=== PATIENT | male | born 1965 | race Caucasian/White ===

== ENCOUNTER 2016-10-23 16:37 | Emergency (ER) | payer MEDICAID, OTHER ==
[~2016-10-23] VITALS: Ht 177.8 cm; Wt 74.8 kg
[2016-10-23 16:37] VITALS: BP 169/96
[~2016-10-23 16:37] MED LIST: AMBI10TA PO; CLON0.2T PO; LISI-538 PO; NORCOTAB PO; ZANA4TAB PO; ZOFR20TA PO; ZOLO50TA PO
[2016-10-23] MEDS ORDERED: GABA-283 PO (16:49)
[2016-10-23] MEDS ORDERED: AMOX500C PO (17:30)
== END 2016-10-23 17:51 | disposition home or self-care (01) ==
LOC: M ED 17:24
DX: S01.501A Unspecified open wound of lip, initial encounter (principal); K02.9 Dental caries, unspecified; Y04.0XXA Assault by unarmed brawl or fight, initial encounter; Y92.89 Other specified places as the place of occurrence of the external cause; Y93.89 Activity, other specified; Y99.9 Unspecified external cause status

== ENCOUNTER 2017-01-26 13:13 | Emergency (ER) | payer MEDICAID, OTHER, SELFPAY ==
[~2017-01-26] VITALS: Ht 177.8 cm; Wt 75.0 kg
[~2017-01-26 13:13] MED LIST changes: +AMOX500C PO; +GABA-283 PO
[2017-01-26] MEDS ORDERED: NORCO, ANEXSIA 5/325MG TABLET (HYDROcodone/ACETAMINOPHEN) PO ONE (13:45)
--- NOTE | 2017-01-26 14:48 | REP ---
LEFT WRIST SERIES: FOUR VIEWS. HISTORY: Trauma. FINDINGS: Four views of the left wrist demonstrate overall normal mineralization. No fracture or subluxation is evident. There is some dorsal soft tissue swelling. IMPRESSION: Soft tissue swelling. No fracture seen. No significant change from the 04/19/2014 prior radiograph. Signed by Larry Herrera MD 01/26/2017 05:05 P
--- NOTE | 2017-01-26 14:48 | REP ---
RIGHT ELBOW SERIES: FOUR VIEWS. HISTORY: Trauma. FINDINGS: Four views of the right elbow demonstrate osteoarthritic spurring. No fracture, subluxation, or joint effusion is seen. IMPRESSION: Right elbow osteoarthritis. No fracture seen. Signed by Larry Herrera MD 01/26/2017 05:04 P
--- NOTE | 2017-01-26 14:49 | REP ---
PELVIS, RIGHT HIP: THREE VIEWS. HISTORY: Trauma. FINDINGS: AP view of the pelvis shows an intact bony pelvic ring. No pelvic or sacral fracture is seen. No hip fracture is noted on either side. IMPRESSION: No fracture noted. Signed by Larry Herrera MD 01/26/2017 05:05 P
[2017-01-26 14:50] VITALS: BP 170/92
[2017-01-26] MEDS ORDERED: IBUP-1022 PO (15:05)
== END 2017-01-26 16:03 | disposition home or self-care (01) ==
LOC: M ED 13:13
DX: S69.92XA Unspecified injury of left wrist, hand and finger(s), initial encounter (principal); Z72.0 Tobacco use; V18.4XXA Pedal cycle driver injured in noncollision transport accident in traffic accident, initial encounter; Y92.410 Unspecified street and highway as the place of occurrence of the external cause; Y93.55 Activity, bike riding; Y99.9 Unspecified external cause status

== ENCOUNTER → 2017-02-09 | Outpatient (CLI) | payer MEDICAID ==
[~2017-02-09] MED LIST changes: +CLON0.2T; +IBUP-1022 PO; +LISI40TAB PO
== END ==
LOC: M OUTALCOH 12:49
PROVIDERS: ATTEND Psychiatry & Neurology Psychiatry
DX: F15.20 Other stimulant dependence, uncomplicated (principal)

== ENCOUNTER 2017-03-16 14:42 | Emergency (ER) | payer MEDICAID, OTHER ==
[~2017-03-16] VITALS: Ht 177.8 cm; Wt 77.6 kg
[~2017-03-16 14:42] MED LIST changes: -CLON0.2T; -LISI40TAB PO
[2017-03-16] MEDS ORDERED: CLON0.2T (14:58)
[2017-03-16] MEDS ORDERED: LISI40TAB PO (14:58)
[2017-03-16 16:05] VITALS: BP 178/88
[2017-03-16] MEDS ORDERED: CLON0.2T PO (16:18)
[2017-03-16] MEDS ORDERED: LISI-538 PO (16:18)
== END 2017-03-16 16:53 | disposition home or self-care (01) ==
LOC: M ED 14:42
DX: I10 Essential (primary) hypertension (principal); Z72.0 Tobacco use

== ENCOUNTER → 2017-03-16 | Outpatient (CLI) | payer MEDICAID | LOC: M OUTALCOH 13:00 | PROVIDERS: ATTEND Psychiatry & Neurology Psychiatry | DX: F14.20 Cocaine dependence, uncomplicated (principal); F15.20 Other stimulant dependence, uncomplicated ==

== ENCOUNTER 2017-03-30 14:54 | Outpatient (RCR) | payer OTHER ==
[~2017-03-30 14:54] MED LIST changes: +CLON0.2T; +LISI40TAB PO
== END 2017-04-28 ==
LOC: M OUTALCOH 14:54
PROVIDERS: ATTEND Psychiatry & Neurology Psychiatry
DX: F14.20 Cocaine dependence, uncomplicated (principal); F11.20 Opioid dependence, uncomplicated; F17.200 Nicotine dependence, unspecified, uncomplicated; F15.20 Other stimulant dependence, uncomplicated

== ENCOUNTER 2017-05-21 08:07 | Emergency (ER) | payer OTHER ==
[~2017-05-21] VITALS: Ht 177.8 cm; Wt 75.0 kg
[2017-05-21] MEDS ORDERED: NS 1,000 ML IV SCH (09:04)
[2017-05-21] MEDS: MORPHINE 4 MG/ML 1ML SYRINGE IV PRN ×2 (09:19→11:32)
[2017-05-21 09:25] LABS: BASO % 0.2 % (0.0-1.0); EOS # 0.1 10^3/uL (0.0-0.50); EOS % 0.7 % (0.0-3.0); IMMATURE GRANULOCYTE % 0.4 % (0-0); LYMPH # 1.9 10^3/uL (1.5-4.5); MEAN CORPUSCULAR HEMOGLOBIN 31.8 pg (27.0-33.0); MEAN CORPUSCULAR HGB CONC 34.3 g/dl (32.0-36.5); MEAN CORPUSCULAR VOLUME 92.7 fl (80.0-96.0); MONO # 1.2 10^3/uL (0.0-0.8); MONO % 10.9 % (0.0-5.0); NEUTROPHILS # 7.8 10^3/uL (1.8-7.7); NEUTROPHILS % 70.8 % (36.0-66.0); PLATELET COUNT, AUTOMATED 206 10^3/uL (150-450); RED CELL DISTRIBUTION WIDTH 13.4 % (11.5-14.5)
[2017-05-21] MEDS ORDERED: GASTROGRAFIN SOLUTION 30ML (Q9963) PO ONE (09:30)
[2017-05-21 09:45] LABS: ALBUMIN 3.8 GM/DL (3.2-5.2); ALBUMIN/GLOBULIN RATIO 0.84 (1.00-1.93); ALKALINE PHOSPHATASE 119 U/L (45-117); ALT/SGPT 185 U/L (12-78); ANION GAP 11 MEQ/L (8-16); AST/SGOT 114 U/L (7-37); BILIRUBIN,DIRECT 0.6 MG/DL (0.0-0.2); BILIRUBIN,TOTAL 1.5 MG/DL (0.2-1.0); BLOOD UREA NITROGEN 17 MG/DL (7-18); CALCIUM LEVEL 8.7 MG/DL (8.5-10.1); CARBON DIOXIDE LEVEL 22 MEQ/L (21-32); CHLORIDE LEVEL 105 MEQ/L (98-107); CREATININE FOR GFR 0.98 MG/DL (0.70-1.30); GLOMERULAR FILTRATION RATE > 60.0 (>56); GLUCOSE, FASTING 82 MG/DL (70-105); POTASSIUM SERUM 3.7 MEQ/L (3.5-5.1); SODIUM LEVEL 138 MEQ/L (136-145); TOTAL PROTEIN 8.3 GM/DL (6.4-8.2)
[2017-05-21] MEDS ORDERED: ISOVUE-370 76% 100ML VIAL (Q9967) As Ordered ONE (09:54)
[2017-05-21] MEDS ORDERED: GASTROGRAFIN SOLUTION 30ML PO ONE (10:00)
--- NOTE | 2017-05-21 10:12 | REP ---
Clinical: Trauma. Technique: AP pelvis with neutral and frog lateral views of the left hip. Comparison: 01/26/2017 Findings: Subtle chronic deformity to the bilateral hips remains stable. No acute fracture dislocation. Impression: No acute fracture dislocation to the left hip. Signed by Asaf Phillips MD 05/21/2017 10:04 A
--- NOTE | 2017-05-21 11:28 | REP ---
Clinical: Left lower quadrant pain. Technique: Axial contrast enhanced images from the lung bases to the pubic symphysis using oral (per protocol) and 100 ml Isovue 370 intravenous contrast material with coronal and sagittal re-formations. Comparison: 01/28/2015. Findings: Lung bases are clear. Visualized heart and pericardium normal. Diffuse fatty infiltration to the liver noted without focal hepatic lesion. Spleen, pancreas, gallbladder, bilateral adrenal glands and kidneys are essentially normal/stable. A simple 5.2 cm left renal cyst remains unchanged. The enteric system is without obstruction or acute inflammatory process. Scattered diverticula noted without acute diverticulitis. Pelvis demonstrates partially collapsed normal bladder and age appropriate prostate/seminal vesicles. No ascites. No free air. No adenopathy. Abdominal aorta without aneurysm or dissection. Musculoskeletal structures demonstrate age-related degenerative changes and old compression fracture at L2 without acute focal osseous abnormality. Impression: 1. Hepatic steatosis without focal hepatic lesion. 2. Stable 5.2 cm simple left renal cyst. 3. Colonic diverticula without acute diverticulitis. 4. Chronic stable changes without further acute abdominopelvic pathology appreciated. Signed by Asaf Phillips MD 05/21/2017 11:19 A
[2017-05-21 12:37] VITALS: BP 170/100
[2017-05-21] MEDS ORDERED: LISINOPRIL 20 MG TAB PO ONE (12:45)
[2017-05-21] MEDS ORDERED: cloNIDine 0.2 MG TAB PO ONE (12:45)
[2017-05-21 13:17] LABS: MUCUS, URINE RFX SMALL (NEGATIVE); SQUAM EPITHELIAL CELL UR AURFX 0 /HPF (0-6)
[2017-05-21 13:21] LABS: SPECIFIC GRAVITY UR AUTO RFX >1.060 (1.002-1.035)
[2017-05-21] MEDS ORDERED: PERC5TAB12 PO (13:29)
[2017-05-21 13:36] VITALS: BP 152/88
== END 2017-05-21 13:38 | disposition home or self-care (01) ==
LOC: M ED 08:07
DX: R10.30 Lower abdominal pain, unspecified (principal); S70.02XA Contusion of left hip, initial encounter; I10 Essential (primary) hypertension; E03.9 Hypothyroidism, unspecified; Z72.0 Tobacco use; W19.XXXA Unspecified fall, initial encounter; Y92.89 Other specified places as the place of occurrence of the external cause; Y93.89 Activity, other specified; Y99.9 Unspecified external cause status
CPT/HCPCS: 51701; 73502; 74177; 80048; 80076; 81001; 83690; 85025; 93041; 94760; 96374; 96376; 99285; Q9963

== ENCOUNTER 2017-07-05 08:39 | Emergency (ER) | payer OTHER ==
[2017-07-05] MEDS: ONDANSETRON 4MG/2ML VIAL (J2405) IV (08:55)
[2017-07-05] MEDS: MORPHINE 4 MG/ML 1ML VIAL IV ×2 (08:55→09:29)
[2017-07-05] MEDS: ADACEL/BOOSTRIX VACCINE (DIPHTH/PERTUSS/ACELL/TETANUS)0.5ML SYR (90715) IM (09:00)
[2017-07-05] MEDS: LR 1,000 ML IV (09:00)
[2017-07-05] MEDS: CEFAZOLIN SOD 1 GM in APPROPRIATE DILUENT 1 EA IV (09:15)
[2017-07-05 09:46] LABS: HEMOGLOBIN 15.5 g/dl (14.0-18.0); MEAN CORPUSCULAR HEMOGLOBIN 31.8 pg (27.0-33.0); MEAN CORPUSCULAR HGB CONC 34.4 g/dl (32.0-36.5); MEAN CORPUSCULAR VOLUME 92.4 fl (80.0-96.0); PLATELET COUNT, AUTOMATED 261 10^3/uL (150-450); RED BLOOD COUNT 4.87 10^6/uL (4.30-6.10); RED CELL DISTRIBUTION WIDTH 13.3 % (11.5-14.5); WHITE BLOOD COUNT 12.2 10^3/uL (4.0-10.0)
[2017-07-05 09:59] LABS: CARBOXYHEMOGLOBIN 4.2 % (0.0-1.5)
[2017-07-05 09:59] LABS: ALBUMIN 3.6 GM/DL (3.2-5.2); ALBUMIN/GLOBULIN RATIO 0.95 (1.00-1.93); ALKALINE PHOSPHATASE 119 U/L (45-117); ALT/SGPT 178 U/L (12-78); ANION GAP 10 MEQ/L (8-16); AST/SGOT 102 U/L (7-37); BILIRUBIN,DIRECT 0.5 MG/DL (0.0-0.2); BILIRUBIN,TOTAL 1.2 MG/DL (0.2-1.0); BLOOD UREA NITROGEN 15 MG/DL (7-18); CALCIUM LEVEL 8.3 MG/DL (8.5-10.1); CARBON DIOXIDE LEVEL 20 MEQ/L (21-32); CHLORIDE LEVEL 104 MEQ/L (98-107); CREATININE FOR GFR 1.12 MG/DL (0.70-1.30); GLOMERULAR FILTRATION RATE > 60.0 (>56); GLUCOSE, FASTING 192 MG/DL (70-100); POTASSIUM SERUM 3.7 MEQ/L (3.5-5.1); SODIUM LEVEL 134 MEQ/L (136-145); TOTAL PROTEIN 7.4 GM/DL (6.4-8.2)
[2017-07-05 10:45] LABS: INR 1.25; PROTHROMBIN TIME 15.9 SECONDS (12.4-14.5)
== END 2017-07-05 10:20 | disposition short-term general hospital (02) ==
LOC: M ED 08:39
DX: T22.6 Corrosion of second degree of shoulder and upper limb, except wrist and hand (principal); T21.6 Corrosion of second degree of trunk; T24.602A Corrosion of second degree of unspecified site of left lower limb, except ankle and foot, initial encounter; T24.601A Corrosion of second degree of unspecified site of right lower limb, except ankle and foot, initial encounter; W40.9XXA Explosion of unspecified explosive materials, initial encounter; X04.XXXA Exposure to ignition of highly flammable material, initial encounter; Y92.009 Unspecified place in unspecified non-institutional (private) residence as the place of occurrence of the external cause; I10 Essential (primary) hypertension; F33.9 Major depressive disorder, recurrent, unspecified; F17.210 Nicotine dependence, cigarettes, uncomplicated; F14.90 Cocaine use, unspecified, uncomplicated; F15.90 Other stimulant use, unspecified, uncomplicated
CPT/HCPCS: 90715

== ENCOUNTER 2017-08-04 04:53 | Emergency (ER) | payer OTHER ==
[2017-08-04] MEDS: ACETAMINOPHEN TAB 650MG DOSE (2X325MG) PO (06:42)
[2017-08-04] MEDS: LISINOPRIL 20 MG TAB PO (06:42)
[2017-08-04] MEDS: GABAPENTIN 300 MG CAP PO (06:42)
== END 2017-08-04 09:10 | disposition home or self-care (01) ==
LOC: M ED 04:53
DX: Z59.0 Homelessness (principal); F15.10 Other stimulant abuse, uncomplicated; F17.210 Nicotine dependence, cigarettes, uncomplicated; Z79.899 Other long term (current) drug therapy
CPT/HCPCS: 99284

== ENCOUNTER → 2017-08-15 | Outpatient (REF) | payer OTHER ==
[2017-08-15 12:20] LABS: HEPATITIS B SURFACE ANTIBODY NEGATIVE (POSITIVE)
[2017-08-15 12:23] LABS: ALBUMIN/GLOBULIN RATIO 0.68 (1.00-1.93); ALKALINE PHOSPHATASE 189 U/L (45-117); ALT/SGPT 54 U/L (12-78); ANION GAP 8 MEQ/L (8-16); AST/SGOT 39 U/L (7-37); BILIRUBIN,TOTAL 0.2 MG/DL (0.2-1.0); BLOOD UREA NITROGEN 17 MG/DL (7-18); CALCIUM LEVEL 8.3 MG/DL (8.5-10.1); CARBON DIOXIDE LEVEL 27 MEQ/L (21-32); CHLORIDE LEVEL 113 MEQ/L (98-107); CREATININE FOR GFR 0.75 MG/DL (0.70-1.30); GLOMERULAR FILTRATION RATE > 60.0 (>56); GLUCOSE, FASTING 85 MG/DL (70-100); POTASSIUM SERUM 4.7 MEQ/L (3.5-5.1); SODIUM LEVEL 148 MEQ/L (136-145); TOTAL PROTEIN 7.4 GM/DL (6.4-8.2)
[2017-08-15 12:26] LABS: BASO % 0.4 % (0.0-1.0); EOS # 0.3 10^3/uL (0.0-0.50); EOS % 6.5 % (0.0-3.0); HEMATOCRIT 38.8 % (42.0-52.0); HEMOGLOBIN 11.9 g/dl (14.0-18.0); IMMATURE GRANULOCYTE % 0.2 % (0-3.0); LYMPH # 1.2 10^3/uL (1.5-4.5); LYMPH % 23.3 % (24.0-44.0); MEAN CORPUSCULAR HEMOGLOBIN 31.5 pg (27.0-33.0); MEAN CORPUSCULAR HGB CONC 30.7 g/dl (32.0-36.5); MEAN CORPUSCULAR VOLUME 102.6 fl (80.0-96.0); MONO # 0.7 10^3/uL (0.0-0.8); MONO % 12.7 % (0.0-5.0); NEUTROPHILS % 56.9 % (36.0-66.0); PLATELET COUNT, AUTOMATED 200 10^3/uL (150-450); RED BLOOD COUNT 3.78 10^6/uL (4.30-6.10); RED CELL DISTRIBUTION WIDTH 14.4 % (11.5-14.5); WHITE BLOOD COUNT 5.2 10^3/uL (4.0-10.0)
[2017-08-15 12:30] LABS: HEPATITIS B SURFACE ANTIGEN NEGATIVE (NEGATIVE)
== END ==
LOC: M SFHCPLAZ 08:41
DX: B19.20 Unspecified viral hepatitis C without hepatic coma (principal)

== ENCOUNTER 2017-09-09 13:23 | Outpatient (RCR) | payer OTHER | END 2017-09-26 | LOC: M PT 13:23 | DX: Z51.89 Encounter for other specified aftercare (principal); R53.81 Other malaise | CPT/HCPCS: 97110 ==

== ENCOUNTER → 2017-09-29 | Outpatient (CLI) | payer OTHER | LOC: M OUTALCOH 14:13 | DX: Z13.9 Encounter for screening, unspecified (principal); F15.20 Other stimulant dependence, uncomplicated ==

== ENCOUNTER 2017-10-17 10:27 | Outpatient (RCR) | payer OTHER | END 2017-10-27 | LOC: M OUTALCOH 10-25 16:00 | DX: F15.20 Other stimulant dependence, uncomplicated (principal); F14.20 Cocaine dependence, uncomplicated; F11.20 Opioid dependence, uncomplicated; F17.200 Nicotine dependence, unspecified, uncomplicated ==

== ENCOUNTER 2018-01-17 17:15 | Emergency (ER) | payer OTHER | END 2018-01-17 18:15 | disposition home or self-care (01) | LOC: M ED 17:15 | DX: T24.201A Burn of second degree of unspecified site of right lower limb, except ankle and foot, initial encounter (principal); X01.0XXA Exposure to flames in uncontrolled fire, not in building or structure, initial encounter; Y92.89 Other specified places as the place of occurrence of the external cause; I10 Essential (primary) hypertension; F41.9 Anxiety disorder, unspecified; F32.9 Major depressive disorder, single episode, unspecified; F17.200 Nicotine dependence, unspecified, uncomplicated; Z79.899 Other long term (current) drug therapy | CPT/HCPCS: 99282 ==

== ENCOUNTER → 2020-04-08 | Outpatient (REF) | payer MEDICAID ==
[~2020-04-08] MED LIST changes: +BACI500O8 TOP; +BACT800T5 PO; -GABA-283 PO; +GABA-845 PO; +HYDR-3715 PO; +LISI40TA PO; -LISI40TAB PO; -NORCOTAB PO; +PERC5TAB12 PO; -ZOFR20TA PO; +ZOFR4TAB16 PO
[2020-04-08 16:02] LABS: BASO % 0.4 % (0.0-1.0); EOS # 0.2 10^3/uL (0.0-0.5); EOS % 2.6 % (0.0-3.0); HEMATOCRIT 51.3 % (42.0-52.0); HEMOGLOBIN 16.4 g/dl (13.5-17.5); LYMPH % 37.6 % (24.0-44.0); MONO # 0.9 10^3/uL (0.0-0.8); MONO % 11.4 % (0.0-5.0); NEUTROPHILS # 3.9 10^3/uL (1.5-8.5); NEUTROPHILS % 47.8 % (36.0-66.0); PLATELET COUNT, AUTOMATED 231 10^3/uL (150-450); RED BLOOD COUNT 5.29 10^6/uL (4.30-6.10); WHITE BLOOD COUNT 8.1 10^3/uL (4.0-10.0)
[2020-04-08 16:42] LABS: HEPATITIS B SURFACE ANTIBODY POSITIVE (POSITIVE)
[2020-04-08 17:21] LABS: HIV 1&2 SCREEN CENTAUR NEGATIVE (NEGATIVE)
== END ==
LOC: M SFHCPLAZ 11:55
PROVIDERS: ATTEND Internal Medicine Infectious Disease
DX: B18.2 Chronic viral hepatitis C (principal); R63.5 Abnormal weight gain

== ENCOUNTER 2020-05-27 12:23 | Emergency (ER) | payer MEDICAID ==
[~2020-05-27] VITALS: Ht 175.3 cm; Wt 109.6 kg
[2020-05-27] MEDS ORDERED: HYDR25TAB PO (12:38)
[2020-05-27] MEDS ORDERED: LISI40TA PO (12:38)
[2020-05-27] MEDS ORDERED: METO1TAB33 PO (12:38)
[2020-05-27] MEDS ORDERED: CLON-412 PO (12:38)
--- NOTE | 2020-05-27 13:08 | REP ---
INDICATION: CHEST PAIN COMPARISON: 07/05/2017 TECHNIQUE: Portable AP view of the chest FINDINGS: The mediastinum and cardiac silhouette are stable and within normal limits for portable technique. The lung richardson are clear without acute consolidation, effusion, or pneumothorax. Skeletal structures are intact. IMPRESSION: No acute cardiopulmonary process appreciated. <Electronically signed by Asaf Phillips > 05/27/20 [id number]
--- NOTE | 2020-05-27 13:20 | ECGEPIP ---
[facility] - ED Test Date: 2020-05-27 Pat Name: CHACORTA MOREAU Department: Room: - Gender: Male Health And Wellness Manager: GISSELLE : 1965 Requested By: Alyssia Russo Order Number: [id number] Reading MD: Ricardo Fisher Measurements Intervals [place] Rate: 51 P: 79 NE: 186 QRS: -12 QRSD: 85 T: 32 QT: 455 QTc: 421 Interpretive Statements SINUS BRADYCARDIA Similar to tracing done 05-28-15 Electronically Signed on 05-27-2020 13:19:50 EST by Ricardo Fisher
[2020-05-27] MEDS ORDERED: hydroCHLOROthiazide 25 MG TAB PO STA (13:34)
[2020-05-27 13:40] LABS: BASO % 0.5 % (0.0-1.0); EOS # 0.2 10^3/uL (0.0-0.5); EOS % 3.5 % (0.0-3.0); HEMATOCRIT 43.7 % (42.0-52.0); HEMOGLOBIN 14.1 g/dl (13.5-17.5); LYMPH # 2.3 10^3/uL (1.5-5.0); LYMPH % 34.1 % (24.0-44.0); MEAN CORPUSCULAR HEMOGLOBIN 30.8 pg (27.0-33.0); MEAN CORPUSCULAR HGB CONC 32.3 g/dl (32.0-36.5); MEAN CORPUSCULAR VOLUME 95.4 fl (80.0-96.0); MONO # 0.7 10^3/uL (0.0-0.8); MONO % 9.9 % (0.0-5.0); NEUTROPHILS # 3.4 10^3/uL (1.5-8.5); NEUTROPHILS % 51.7 % (36.0-66.0); PLATELET COUNT, AUTOMATED 166 10^3/uL (150-450); RED BLOOD COUNT 4.58 10^6/uL (4.30-6.10); WHITE BLOOD COUNT 6.6 10^3/uL (4.0-10.0)
[2020-05-27 17:31] VITALS: BP 168/100
--- NOTE | 2020-05-28 07:30 | ECGEPIP ---
[facility] - ED Test Date: 2020-05-27 Pat Name: CHACORTA MOREAU Department: Room: - Gender: Male Manager Of Merchandising: ty : 1965 Requested By: RICARDO VILLATORO Order Number: [id number] Reading MD: Ricardo Fisher Measurements Intervals [place] Rate: 47 P: 44 CT: 191 QRS: -18 QRSD: 91 T: 2 QT: 484 QTc: 432 Interpretive Statements SINUS BRADYCARDIA Nonspecific ST-T wave abnormalities Electronically Signed on 05-28-2020 7:29:57 EST by Ricardo Fisher
== END 2020-05-27 17:46 | disposition home or self-care (01) ==
LOC: M ED 12:23
DX: I10 Essential (primary) hypertension (principal); K21.9 Gastro-esophageal reflux disease without esophagitis; M54.5 Low back pain; Z79.899 Other long term (current) drug therapy; F19.11 Other psychoactive substance abuse, in remission; F17.220 Nicotine dependence, chewing tobacco, uncomplicated

== ENCOUNTER → 2020-10-29 | Outpatient (CLI) | payer OTHER ==
[~2020-10-29] MED LIST changes: +CLON-412 PO; +GABA-283 PO; -GABA-845 PO; +HYDR-3490 PO; -LISI-538 PO; +LISI20TA33 PO; -LISI40TA PO; +LISI40TA4 PO; +METO1TAB33 PO
--- NOTE | 2020-10-29 10:34 | REPVR ---
PROCEDURE INFORMATION: Exam: MR Lumbar Spine Without Contrast Exam date and time: 10/29/2020 8:31 AM Age: 55 years old Clinical indication: Low back pain. TECHNIQUE: Imaging protocol: Multiplanar magnetic resonance images of the lumbar spine without intravenous contrast. COMPARISON: MRI-Spine, L.S. without con 07/17/2015 5:54 PM FINDINGS: Vertebrae: There is a chronic L2 compression fracture. This has been reported previously. Spinal cord: Normal signal. No cord compression. L1-L2: No significant disc disease. No significant spinal canal stenosis. No neural foraminal stenosis. L2-L3: There is disc desiccation. There is a moderate disc bulge with a small superimposed central disc herniation. There is moderate bilateral neural foraminal narrowing. There is facet arthropathy and ligamentum flavum hypertrophy. There is moderate spinal canal stenosis, worse compared to prior study. L3-L4: There is facet arthropathy and ligamentum flavum hypertrophy. There is moderate bilateral neural foraminal narrowing. There is mild/moderate spinal canal stenosis. L4-L5: There is facet arthropathy and ligamentum flavum hypertrophy. There is a superimposed left foraminal disc herniation. There is moderate/severe bilateral neuroforaminal narrowing, left worse than right. There is moderate spinal canal stenosis. L5-S1: There is mild disc bulging. There is a superimposed left foraminal disc herniation. There is moderate left-sided neuroforaminal narrowing. There is facet arthropathy and ligamentum flavum hypertrophy. There is mild spinal canal stenosis. Sacrum/coccyx: There is a transitional lumbosacral segment. There is lumbarization of the S1 vertebra. Correlation with plain films prior to any future lumbar procedure is recommended to confirm accurate numbering of the lumbar spine. Soft tissues: Unremarkable. Kidneys and ureters: There are high signal lesions in the left kidney, possibly cysts, but not fully characterized on this MRI exam. The appearance is similar to prior study. Other findings: There is congenital spinal canal stenosis which is exacerbated by multilevel degenerative changes. IMPRESSION: 1. There is congenital spinal canal stenosis which is exacerbated by multilevel degenerative changes. 2. There is a chronic L2 compression fracture. This has been reported previously. 3. Moderate multilevel degenerative changes causing variable degrees of spinal canal and neuroforaminal narrowing as described above. These findings have progressed since prior study. Please see details above. 4. There is a transitional lumbosacral segment. There is lumbarization of the S1 vertebra. Correlation with plain films prior to any future lumbar procedure is recommended to confirm accurate numbering of the lumbar spine. Electronically signed by: Andre Hercules On 10/29/2020 10:34:49 AM
== END ==
LOC: M PLARAD 07:41
PROVIDERS: ATTEND Physician Assistant
DX: M51.36 Other intervertebral disc degeneration, lumbar region (principal); M48.061 Spinal stenosis, lumbar region without neurogenic claudication

== ENCOUNTER → 2020-10-29 | Outpatient (CLI) | payer OTHER ==
[2020-10-29 11:07] LABS: BASO % 0.4 % (0.0-1.0); EOS # 0.2 10^3/uL (0.0-0.5); EOS % 3.1 % (0.0-3.0); HEMATOCRIT 49.2 % (42.0-52.0); HEMOGLOBIN 16.1 g/dl (13.5-17.5); LYMPH # 2.8 10^3/uL (1.5-5.0); LYMPH % 38.9 % (24.0-44.0); MEAN CORPUSCULAR HEMOGLOBIN 31.8 pg (27.0-33.0); MEAN CORPUSCULAR HGB CONC 32.7 g/dl (32.0-36.5); MEAN CORPUSCULAR VOLUME 97.2 fl (80.0-96.0); MONO # 0.8 10^3/uL (0.0-0.8); MONO % 10.7 % (2.0-8.0); NEUTROPHILS # 3.4 10^3/uL (1.5-8.5); NEUTROPHILS % 46.6 % (36.0-66.0); PLATELET COUNT, AUTOMATED 180 10^3/uL (150-450); RED BLOOD COUNT 5.06 10^6/uL (4.30-6.10); WHITE BLOOD COUNT 7.2 10^3/uL (4.0-10.0)
[2020-10-29 11:28] LABS: ERYTHROCYTE SEDIMENTATION RATE 4 mm/hr (0-20)
[2020-10-29 11:42] LABS: C REACTIVE PROTEIN QUANTITATIV < 0.30 MG/DL (0.00-0.30); RHEUMATOID FACTOR QUANT < 10.0 IU/ML (<15.0)
== END ==
LOC: M PLALAB 08:44
PROVIDERS: ATTEND Physician Assistant
DX: M51.36 Other intervertebral disc degeneration, lumbar region (principal)

== ENCOUNTER → 2020-12-05 | Outpatient (REF) ==
[~2020-12-05] MED LIST changes: +AMLO1TAB25 PO; +CHLO125TA PO; +CORE25TA PO; +GABA-282; +IBUP80TA; +OXYC10TA3; +SPIR-10 PO; +TIZA10TA
== END ==
LOC: M PLAIMG 13:44
PROVIDERS: ATTEND Internal Medicine
DX: M54.2 Cervicalgia (principal); M54.89 Other dorsalgia

== ENCOUNTER → 2020-12-11 | Outpatient (CLI) | payer OTHER, MEDICAID ==
[~2020-12-11] MED LIST changes: -AMLO1TAB25 PO; -CHLO125TA PO; -CORE25TA PO; -GABA-282; -IBUP80TA; -OXYC10TA3; -SPIR-10 PO; -TIZA10TA
[2020-12-11 14:15] LABS: CALCIUM LEVEL 9.2 MG/DL (8.5-10.1); CREATININE FOR GFR 1.47 MG/DL (0.70-1.30); GLOMERULAR FILTRATION RATE 52.6 (>56); POTASSIUM SERUM 4.2 MEQ/L (3.5-5.1)
== END ==
LOC: M PLALAB 09:40
PROVIDERS: ATTEND Student in an Organized Health Care Education/Training Program
DX: M94.0 Chondrocostal junction syndrome [Tietze] (principal)

== ENCOUNTER → 2020-12-11 | Outpatient (REF) | payer OTHER, MEDICAID | LOC: M SFHCPLAZ 09:09 | PROVIDERS: ATTEND Family Medicine | DX: M94.0 Chondrocostal junction syndrome [Tietze] (principal) ==

== ENCOUNTER → 2021-01-05 | Outpatient (CLI) | payer OTHER, MEDICAID ==
[~2021-01-05] MED LIST changes: +AMLO1TAB25 PO; +CHLO125TA PO; +CORE25TA PO; +GABA-282; +IBUP80TA; +OXYC10TA3; +SPIR-10 PO; +TIZA10TA
[2021-01-05 11:45] LABS: BLOOD UREA NITROGEN 25 MG/DL (7-18); CALCIUM LEVEL 9.1 MG/DL (8.5-10.1); CARBON DIOXIDE LEVEL 24 MEQ/L (21-32); CHLORIDE LEVEL 107 MEQ/L (98-107); CREATININE FOR GFR 1.26 MG/DL (0.70-1.30); GLOMERULAR FILTRATION RATE > 60.0 (>56); GLUCOSE, FASTING 102 MG/DL (70-100); POTASSIUM SERUM 4.7 MEQ/L (3.5-5.1); SODIUM LEVEL 139 MEQ/L (136-145)
== END ==
LOC: M PLALAB 08:14
PROVIDERS: ATTEND Student in an Organized Health Care Education/Training Program
DX: N17.9 Acute kidney failure, unspecified (principal)

== ENCOUNTER 2021-05-26 13:39 | Emergency (ER) | payer MEDICAID, OTHER ==
[~2021-05-26] VITALS: Ht 175.3 cm; Wt 88.6 kg
[~2021-05-26 13:39] MED LIST changes: -AMLO1TAB25 PO; -CHLO125TA PO; -CORE25TA PO; -GABA-282; -IBUP80TA; -OXYC10TA3; -SPIR-10 PO; -TIZA10TA
[2021-05-26] MEDS ORDERED: TIZA4TAB4 (13:56)
[2021-05-26] MEDS ORDERED: GABA-282 (13:56)
--- NOTE | 2021-05-26 15:15 | REPVR ---
PROCEDURE INFORMATION: Exam: CT Lumbar Spine Without Contrast Exam date and time: 05/26/2021 2:53 PM Age: 55 years old Clinical indication: Injury or trauma; Blunt trauma (contusions or hematomas) TECHNIQUE: Imaging protocol: Computed tomography images of the lumbar spine without contrast. Radiation optimization: All CT scans at this facility use at least one of these dose optimization techniques: automated exposure control; mA and/or kV adjustment per patient size (includes targeted exams where dose is matched to clinical indication); or iterative reconstruction. COMPARISON: 1. MRI-Spine, L.S. without con 10/29/2020 7:56 AM 2. MRI-Spine, L.S. without con 5:54 PM 07/17/2015 FINDINGS: Vertebrae: There is chronic fusion at L1-L2. There is a chronic appearing cleft of L2 which suggests a remote fracture stable since at least 2015 with minimal loss of stature. There is no evidence of an acute fracture. There are diffuse anterior spinal enthesopathic changes consistent with benign diffuse idiopathic skeletal hyperostosis (DISH). There is fusion of the left facet joints at L3-L4 with mild narrowing of the disc space. There is mild right and moderate left foraminal stenosis. Discs/Spinal canal/Neural foramina: See "Vertebrae" finding. Soft tissues: Unremarkable. IMPRESSION: 1. There is chronic fusion at L1-L2. 2. There is a chronic appearing cleft of L2 which suggests a remote fracture stable since at least 2015 with minimal loss of stature. There is no evidence of an acute fracture. 3. There are diffuse anterior spinal enthesopathic changes consistent with benign diffuse idiopathic skeletal hyperostosis (DISH). 4. There is fusion of the left facet joints at L3-L4 with mild narrowing of the disc space. There is mild right and moderate left foraminal stenosis. Electronically signed by: Mychal Fuentes On 05/26/2021 15:14:21 PM
[2021-05-26 15:24] LABS: BASO % 0.4 % (0.0-1.0); EOS # 0.1 10^3/uL (0.0-0.5); EOS % 1.2 % (0.0-3.0); HEMATOCRIT 45.3 % (42.0-52.0); HEMOGLOBIN 14.9 g/dl (13.5-17.5); LYMPH # 1.6 10^3/uL (1.5-5.0); LYMPH % 14.4 % (24.0-44.0); MEAN CORPUSCULAR HEMOGLOBIN 31.4 pg (27.0-33.0); MEAN CORPUSCULAR HGB CONC 32.9 g/dl (32.0-36.5); MEAN CORPUSCULAR VOLUME 95.4 fl (80.0-96.0); NEUTROPHILS # 8.2 10^3/uL (1.5-8.5); NEUTROPHILS % 74.5 % (36.0-66.0); PLATELET COUNT, AUTOMATED 233 10^3/uL (150-450); RED BLOOD COUNT 4.75 10^6/uL (4.30-6.10)
[2021-05-26 15:47] LABS: ALBUMIN 3.5 GM/DL (3.2-5.2); ALT/SGPT 53 U/L (12-78); BILIRUBIN,TOTAL 1.1 MG/DL (0.2-1.0); BLOOD UREA NITROGEN 15 MG/DL (7-18); CALCIUM LEVEL 9.4 MG/DL (8.5-10.1); CARBON DIOXIDE LEVEL 32 MEQ/L (21-32); CHLORIDE LEVEL 105 MEQ/L (98-107); CREATININE FOR GFR 0.93 MG/DL (0.70-1.30); GLOMERULAR FILTRATION RATE > 60.0 (>56); GLUCOSE, FASTING 117 MG/DL (70-100); POTASSIUM SERUM 3.8 MEQ/L (3.5-5.1); SODIUM LEVEL 143 MEQ/L (136-145); TOTAL PROTEIN 7.6 GM/DL (6.4-8.2)
[2021-05-26] MEDS ORDERED: KETOROLAC 30 MG/ML 1ML VIAL IV ONE (16:00)
--- NOTE | 2021-05-26 16:26 | REP ---
INDICATION: painful cough and left lower rib pain COMPARISON: None TECHNIQUE: Axial noncontrast images from the thoracic inlet to the upper abdomen with coronal and sagittal reformations. This CT examination was performed using the following dose reduction techniques: Automated exposure control, adjustment of mA and/or kv according to the patient's size, and use of iterative reconstruction technique. FINDINGS: Lung richardson demonstrate diffuse subtle bilateral opacities along with mild mediastinal adenopathy. Findings suggest early multifocal pneumonia and or COVID-19 pulmonary disease. No effusion. No pneumothorax. Tracheobronchial tree is patent. Mediastinum demonstrates relatively age-appropriate thoracic aorta, pulmonary vasculature, and heart/pericardium. The skeletal structures demonstrate degenerative changes although there appears to be a possible acute nondisplaced fracture involving the left transverse process at L1 (series 202, image [id number]). IMPRESSION: 1. Moderate subtle bilateral pulmonary opacities concerning for COVID-19 pulmonary disease versus multifocal pneumonia. 2. Possible acute nondisplaced fracture of the left L1 transverse process. <Electronically signed by Asaf Phillips > 05/26/21 [id number]
[2021-05-26 16:40] LABS: APPEARANCE, URINE HAZY (CLEAR); BACTERIA, URINE AUTO NEGATIVE (NEGATIVE); BILIRUBIN, URINE AUTO NEGATIVE (NEGATIVE); BLOOD, URINE BLOOD NEGATIVE (NEGATIVE); COLOR, URINE AMBER (YELLOW); GLUCOSE, URINE (UA) AUTO NEGATIVE (NEGATIVE); KETONE, URINE AUTO TRACE mg/dL (NEGATIVE); LEUKOCYTE ESTERASE, URINE AUTO NEGATIVE (NEGATIVE); MUCUS, URINE LARGE (NEGATIVE); NITRITE, URINE AUTO NEGATIVE (NEGATIVE); PROTEIN, URINE AUTO 1+ mg/dL (NEGATIVE); RBC, URINE AUTO 1 /HPF (0-3); SPECIFIC GRAVITY URINE AUTO 1.025 (1.002-1.035); SQUAMOUS EPITHELIAL CELL UR AU 0 /HPF (0-6); WBC, URINE AUTO 2 /HPF (0-3)
[2021-05-26] MEDS ORDERED: PERCOCET 5MG/325MG TAB PO ONE (18:05)
--- NOTE | 2021-05-26 18:16 | HPE ---
HISTORY AND PHYSICAL DATE OF ADMISSION: 05/26/2021 CHIEF COMPLAINT: Back pain. HISTORY OF PRESENT ILLNESS: I was called by the QMP, Fannie Hurtado, at [facility] today, 05/26/2021, at approximately 4:35 p.m. Per the QMP, patient slipped on a step 2 days ago, landed on her buttocks and her back. Is bruised. Had midline lumbar spine pain, worse with motion. CT scan was performed that shows a left L1 transverse process fracture per the QMP. ASSESSMENT AND PLAN: This is a 55-year-old patient with a spine fracture. I do not have privileges to assess, manage, or treat this problem. The QMP, Fannie Hurtado, understood and had no further questions or concerns.
[2021-05-26 20:40] VITALS: BP 142/85
== END 2021-05-26 20:45 | disposition short-term general hospital (02) ==
LOC: M ED 13:39
DX: S32.008A Other fracture of unspecified lumbar vertebra, initial encounter for closed fracture (principal); W01.198A Fall on same level from slipping, tripping and stumbling with subsequent striking against other object, initial encounter; Y92.89 Other specified places as the place of occurrence of the external cause; I10 Essential (primary) hypertension; G89.29 Other chronic pain; F17.220 Nicotine dependence, chewing tobacco, uncomplicated
CPT/HCPCS: 71250; 72131; 80053; 81001; 85025; 96374; 99284; J1885; U0002

== ENCOUNTER 2021-06-25 07:36 | Emergency (ER) | payer OTHER ==
[~2021-06-25] VITALS: Ht 175.3 cm; Wt 87.9 kg
[~2021-06-25 07:36] MED LIST changes: +GABA-282; +TIZA10TA
[2021-06-25] MEDS ORDERED: IBUP80TA (07:44)
[2021-06-25] MEDS ORDERED: OXYC10TA3 (07:44)
[2021-06-25] MEDS ORDERED: FUROSEMIDE 20MG/2ML VIAL (J1940) IV ONE (12:50)
[2021-06-25 13:00] VITALS: BP 197/95
[2021-06-25] MEDS ORDERED: SPIRONOLACTONE 25 MG TAB PO ONE (15:25)
[2021-06-25] MEDS ORDERED: FUROSEMIDE 40MG/4ML VIAL (J1940) IV ONE (15:25)
[2021-06-25] MEDS ORDERED: CHLO125TA PO (17:51)
[2021-06-25] MEDS ORDERED: CORE25TA PO (17:51)
[2021-06-25] MEDS ORDERED: AMLO1TAB25 PO (17:51)
[2021-06-25] MEDS ORDERED: SPIR-10 PO (17:51)
[2021-06-25 18:27] VITALS: BP 176/94
== END 2021-06-25 18:38 | disposition home or self-care (01) ==
LOC: M ED 07:36
DX: I16.0 Hypertensive urgency (principal); I10 Essential (primary) hypertension; R21 Rash and other nonspecific skin eruption; B18.2 Chronic viral hepatitis C; E03.9 Hypothyroidism, unspecified; F33.9 Major depressive disorder, recurrent, unspecified; F41.9 Anxiety disorder, unspecified; M51.9 Unspecified thoracic, thoracolumbar and lumbosacral intervertebral disc disorder; Z79.899 Other long term (current) drug therapy; F17.210 Nicotine dependence, cigarettes, uncomplicated
CPT/HCPCS: 80047; 96374; 96375; 99285; J1940

== ENCOUNTER 2022-05-31 05:02 | Inpatient (IN) | payer OTHER ==
[~2022-05-31] VITALS: Ht 175.3 cm; Wt 70.6 kg
[2022-05-31] VITALS (7 sets, daily range): BP systolic 135–166; BP diastolic 88–112
[~2022-05-31 05:02] MED LIST changes: +AMLO1TAB25 PO; +CHLO125TA PO; +CORE25TA PO; +IBUP80TA PO; +OXYC10TA3; +SPIR-10 PO
[2022-05-31] MEDS ORDERED: MORPHINE 10 MG/ML 1ML VIAL IM ONE (05:40)
[2022-05-31] MEDS ORDERED: MORPHINE 4 MG/ML 1ML VIAL IV ONE (06:45)
[2022-05-31] MEDS ORDERED: CHLORTHALIDONE 12.5MG PER 1/2 TABLET PO ONE (06:50)
[2022-05-31] MEDS ORDERED: CARVedilol 12.5 MG TAB PO ONE (06:50)
[2022-05-31] MEDS ORDERED: KETOROLAC 30 MG/ML 1ML VIAL IV ONE (07:00)
[2022-05-31 07:23] LABS: BASO % 0.3 % (0.0-1.0); EOS # 0.1 10^3/uL (0.0-0.5); EOS % 0.9 % (0.0-3.0); HEMATOCRIT 48.3 % (42.0-52.0); HEMOGLOBIN 15.6 g/dl (13.5-17.5); LYMPH # 1.4 10^3/uL (1.5-5.0); LYMPH % 15.6 % (24.0-44.0); MEAN CORPUSCULAR HEMOGLOBIN 30.4 pg (27.0-33.0); MEAN CORPUSCULAR HGB CONC 32.3 g/dl (32.0-36.5); MONO # 0.6 10^3/uL (0.0-0.8); MONO % 6.9 % (2.0-8.0); NEUTROPHILS # 6.8 10^3/uL (1.5-8.5); NEUTROPHILS % 75.2 % (36.0-66.0); PLATELET COUNT, AUTOMATED 163 10^3/uL (150-450); RED BLOOD COUNT 5.14 10^6/uL (4.30-6.10); WHITE BLOOD COUNT 9.1 10^3/uL (4.0-10.0)
[2022-05-31 07:41] LABS: BLOOD UREA NITROGEN 29 MG/DL (9-23); CARBON DIOXIDE LEVEL 20 MMOL/L (20-31); CHLORIDE LEVEL 103 MMOL/L (98-107); CREATININE FOR GFR 0.98 MG/DL (0.70-1.30); GLOMERULAR FILTRATION RATE > 60.0 (>56); GLUCOSE, FASTING 121 MG/DL (60-100); POTASSIUM SERUM 3.5 MMOL/L (3.5-5.1); SODIUM LEVEL 139 MMOL/L (136-145)
[2022-05-31] MEDS ORDERED: METOPROLOL TART 25 MG TABLET PO ONE (09:05)
[2022-05-31] MEDS ORDERED: MOM 30ML SUSPENSION UDC PO PRN (09:30)
[2022-05-31] MEDS: METOPROLOL 5 MG/5 ML VIAL IV PRN ×3 (09:32→09:53)
[2022-05-31] MEDS: DOCUSATE SODIUM 100MG CAPSULE PO SCH ×2 (10:04→19:47)
[2022-05-31] MEDS ORDERED: TIZA10TA PO (10:17)
[2022-05-31] MEDS ORDERED: MEDREC COMMENT (10:17)
[2022-05-31] MEDS ORDERED: SPIR-10 PO (10:17)
[2022-05-31] MEDS ORDERED: CARV25TA PO (10:17)
[2022-05-31] MEDS ORDERED: AMLO1TAB25 PO (10:17)
[2022-05-31] MEDS ORDERED: NEUR300C PO (10:17)
[2022-05-31] MEDS ORDERED: CHLO25TA PO (10:17)
[2022-05-31] MEDS ORDERED: ceFAZolin SOD 2 GM in IV 1 EA IV ONE (13:25)
[2022-05-31] MEDS: METOPROLOL TART 25 MG TABLET PO SCH ×2 (15:14→18:35)
[2022-05-31] MEDS: PERCOCET 5MG/325MG TAB PO PRN ×2 (15:15→21:35)
[2022-05-31] MEDS ORDERED: IBUP200T46 PO (19:47)
[2022-05-31] MEDS ORDERED: ACET-897 PO (19:47)
[2022-05-31] MEDS ORDERED: MED REC COMMENT (19:49)
[2022-05-31] MEDS ORDERED: HOME MED LIST COMPLETE! XX SCH (19:50)
[2022-05-31] MEDS ORDERED: HEPARIN SOD (PORCINE) 5000UNITS/ML 1ML VIAL/SYRINGE SQ SCH (21:00)
[2022-05-31] MEDS ORDERED: D5W/0.9% SODIUM CHLORIDE 1,000 ML IV SCH (23:55)
[2022-06-01] VITALS (20 sets, daily range): BP systolic 130–158; BP diastolic 72–102
[2022-06-01] MEDS: METOPROLOL TART 25 MG TABLET PO SCH ×4 (00:12→17:15)
[2022-06-01 04:46] LABS: HEMATOCRIT 44.1 % (42.0-52.0); HEMOGLOBIN 14.5 g/dl (13.5-17.5); MEAN CORPUSCULAR HGB CONC 32.9 g/dl (32.0-36.5); MEAN CORPUSCULAR VOLUME 94.2 fl (80.0-96.0); PLATELET COUNT, AUTOMATED 194 10^3/uL (150-450); RED BLOOD COUNT 4.68 10^6/uL (4.30-6.10)
[2022-06-01] MEDS: PERCOCET 5MG/325MG TAB PO PRN ×2 (04:47→21:19)
[2022-06-01 05:14] LABS: BLOOD UREA NITROGEN 21 MG/DL (9-23); CALCIUM LEVEL 8.5 MG/DL (8.5-10.1); CARBON DIOXIDE LEVEL 24 MMOL/L (20-31); CHLORIDE LEVEL 103 MMOL/L (98-107); CREATININE FOR GFR 0.95 MG/DL (0.70-1.30); GLOMERULAR FILTRATION RATE > 60.0 (>56); GLUCOSE, FASTING 126 MG/DL (60-100); POTASSIUM SERUM 3.9 MMOL/L (3.5-5.1); SODIUM LEVEL 136 MMOL/L (136-145)
[2022-06-01] MEDS ORDERED: ceFAZolin SOD 2 GM in IV 1 EA IV ONE (06:00)
[2022-06-01] MEDS ORDERED: MORPHINE 2 MG/ML 1ML VIAL As Ordered ONE (06:02)
[2022-06-01] MEDS ORDERED: MORPHINE 2 MG/ML 1ML VIAL IV ONE (06:10)
[2022-06-01] MEDS ORDERED: fentaNYL 100 MCG/2 ML INJECTION As Ordered ONE ×2 (07:01→10:11)
[2022-06-01] MEDS ORDERED: propofoL 200 MG/20 ML VIAL As Ordered ONE (07:02)
[2022-06-01] MEDS ORDERED: ROCURONIUM BROMIDE 50MG/5ML VIAL As Ordered ONE ×2 (07:02→08:19)
[2022-06-01] MEDS ORDERED: SUGAMMADEX SODIUM 500 MG/5 ML VIAL (BRIDION) As Ordered ONE (07:02)
[2022-06-01] MEDS ORDERED: MIDAZOLAM INJ 2MG/2ML VIAL As Ordered ONE (07:02)
[2022-06-01] MEDS ORDERED: ONDANSETRON 4MG 2ML VIAL As Ordered ONE (07:03)
[2022-06-01] MEDS ORDERED: ACETAMINOPHEN 1000MG 100ML IV BAG As Ordered ONE (07:03)
[2022-06-01] MEDS ORDERED: LIDOCAINE 2% 100MG/5ML SDV (FOR ANES.) As Ordered ONE (07:03)
[2022-06-01] MEDS ORDERED: ceFAZolin 2 GM/D5W 50 ML IV BAG As Ordered ONE (07:15)
[2022-06-01] MEDS ORDERED: PHENYLephrine 500MCG 5ML (100MCG/ML) SYRINGE As Ordered ONE ×2 (08:13→08:15)
[2022-06-01] MEDS ORDERED: fentaNYL 100 MCG/2 ML INJECTION IV PRN (10:15)
[2022-06-01] MEDS ORDERED: ONDANSETRON 4MG 2ML VIAL IV PRN (10:15)
[2022-06-01] MEDS ORDERED: LR 1,000 ML IV SCH (10:15)
[2022-06-01] MEDS ORDERED: oxyCODONE 5MG TAB PO PRN (10:15)
[2022-06-01] MEDS: DOCUSATE SODIUM 100MG CAPSULE PO SCH ×2 (12:35→21:18)
[2022-06-01] MEDS: RIVAROXABAN 20MG TAB (XARELTO) PO SCH (17:14)
[2022-06-01] MEDS: ceFAZolin SOD 2 GM in IV 1 EA IV SCH (22:25)
[2022-06-02] VITALS (7 sets, daily range): BP systolic 118–180; BP diastolic 85–118
[2022-06-02] MEDS: METOPROLOL TART 25 MG TABLET PO SCH ×2 (00:07→05:55)
[2022-06-02] MEDS: ceFAZolin SOD 2 GM in IV 1 EA IV SCH (05:50)
[2022-06-02] MEDS: PERCOCET 5MG/325MG TAB PO PRN (05:50)
[2022-06-02] MEDS ORDERED: METOPROLOL TART 25 MG TABLET PO ONE (07:10)
[2022-06-02] MEDS ORDERED: cloNIDine 0.1MG TABLET PO ONE (07:20)
[2022-06-02] MEDS ORDERED: HYDROMORPHONE HCL 0.5 MG/ 0.5 ML SYRINGE IV ONE (07:20)
[2022-06-02] MEDS: SENOKOT S TAB PO SCH ×2 (09:22→20:55)
[2022-06-02] MEDS: MIRALAX *UNIT DOSE* 17GM PACKET PO SCH ×2 (09:23→20:38)
[2022-06-02] MEDS: IBUPROFEN 100MG 5ML ORAL SUSP UDC PO SCH ×3 (09:23→17:50)
[2022-06-02] MEDS: RIVAROXABAN 20MG TAB (XARELTO) PO SCH (17:50)
[2022-06-02] MEDS: oxyCODONE 5MG TAB PO PRN (20:50)
[2022-06-02] MEDS ORDERED: atenoloL 50 MG TAB PO SCH (21:00)
[2022-06-03] MEDS: oxyCODONE 5MG TAB PO PRN ×4 (03:43→21:45)
[2022-06-03 05:33] VITALS: BP 142/98
[2022-06-03] MEDS ORDERED: atenoloL 25 MG TAB PO ONE (07:30)
[2022-06-03] MEDS: IBUPROFEN 100MG 5ML ORAL SUSP UDC PO SCH ×3 (08:17→17:31)
[2022-06-03] MEDS: PANTOPRAZOLE 40MG TAB (PROTONIX) PO SCH (08:19)
[2022-06-03] MEDS: MIRALAX *UNIT DOSE* 17GM PACKET PO SCH ×2 (08:24→21:00)
[2022-06-03] MEDS: SENOKOT S TAB PO SCH ×2 (08:24→21:00)
[2022-06-03 14:00] VITALS: BP 119/78
[2022-06-03] MEDS: RIVAROXABAN 20MG TAB (XARELTO) PO SCH (17:30)
[2022-06-03 20:00] VITALS: BP 156/94
[2022-06-03] MEDS ORDERED: atenoloL 25 MG TAB PO SCH (21:00)
[2022-06-04] MEDS: oxyCODONE 5MG TAB PO PRN ×3 (03:48→22:27)
[2022-06-04 06:16] VITALS: BP 167/93
[2022-06-04] MEDS ORDERED: oxyCODONE 15MG CR TAB PO ONE (07:30)
[2022-06-04] MEDS ORDERED: atenoloL 50 MG TAB PO ONE (07:30)
[2022-06-04] MEDS ORDERED: oxyCODONE 5MG TAB PO ONE (07:35)
[2022-06-04 07:45] LABS: HEMATOCRIT 47.1 % (42.0-52.0); HEMOGLOBIN 15.3 g/dl (13.5-17.5); MEAN CORPUSCULAR HEMOGLOBIN 30.9 pg (27.0-33.0); MEAN CORPUSCULAR HGB CONC 32.5 g/dl (32.0-36.5); MEAN CORPUSCULAR VOLUME 95.2 fl (80.0-96.0); PLATELET COUNT, AUTOMATED 318 10^3/uL (150-450); RED BLOOD COUNT 4.95 10^6/uL (4.30-6.10); WHITE BLOOD COUNT 10.4 10^3/uL (4.0-10.0)
[2022-06-04 08:06] LABS: ALBUMIN 2.8 G/DL (3.2-5.2); ALKALINE PHOSPHATASE 157 U/L (46-116); ALT/SGPT 39 U/L (7.0-40); AST/SGOT 44 U/L (<34); BILIRUBIN,TOTAL 0.9 MG/DL (0.3-1.2); BLOOD UREA NITROGEN 21 MG/DL (9-23); CALCIUM LEVEL 8.8 MG/DL (8.5-10.1); CARBON DIOXIDE LEVEL 29 MMOL/L (20-31); CHLORIDE LEVEL 104 MMOL/L (98-107); CREATININE FOR GFR 0.89 MG/DL (0.70-1.30); GLOMERULAR FILTRATION RATE > 60.0 (>56); GLUCOSE, FASTING 120 MG/DL (60-100); POTASSIUM SERUM 4.7 MMOL/L (3.5-5.1); SODIUM LEVEL 140 MMOL/L (136-145)
[2022-06-04] MEDS: SENOKOT S TAB PO SCH ×2 (08:57→20:57)
[2022-06-04] MEDS: KETOROLAC 30 MG/ML 1ML VIAL IV SCH ×3 (08:57→20:00)
[2022-06-04] MEDS: MIRALAX *UNIT DOSE* 17GM PACKET PO SCH ×2 (08:57→20:08)
[2022-06-04] MEDS: PANTOPRAZOLE 40MG TAB (PROTONIX) PO SCH (08:57)
[2022-06-04] MEDS ORDERED: atenoloL 50 MG TAB PO SCH (09:00)
[2022-06-04 14:30] VITALS: BP 107/80
[2022-06-04] MEDS: RIVAROXABAN 20MG TAB (XARELTO) PO SCH (18:17)
[2022-06-04 20:01] VITALS: BP 138/83
[2022-06-05] MEDS: KETOROLAC 30 MG/ML 1ML VIAL IV SCH (02:00)
[2022-06-05 06:24] VITALS: BP 125/89
[2022-06-05] MEDS: oxyCODONE 5MG TAB PO PRN ×3 (06:33→22:33)
[2022-06-05] MEDS ORDERED: HYDROMORPHONE HCL 0.5 MG/ 0.5 ML SYRINGE IV ONE (07:30)
[2022-06-05] MEDS ORDERED: KETOROLAC 30 MG/ML 1ML VIAL IV ONE (08:00)
[2022-06-05] MEDS: PANTOPRAZOLE 40MG TAB (PROTONIX) PO SCH (08:17)
[2022-06-05] MEDS: MIRALAX *UNIT DOSE* 17GM PACKET PO SCH ×3 (08:18→21:00)
[2022-06-05] MEDS: SENOKOT S TAB PO SCH ×2 (08:18→22:26)
[2022-06-05 14:00] VITALS: BP 123/81
[2022-06-05] MEDS: RIVAROXABAN 20MG TAB (XARELTO) PO SCH (18:11)
[2022-06-05 22:00] VITALS: BP 144/76
[2022-06-06 06:00] VITALS: BP 131/80
[2022-06-06] MEDS ORDERED: KETOROLAC 30 MG/ML 1ML VIAL IV ONE (07:10)
[2022-06-06] MEDS ORDERED: HYDROMORPHONE HCL 0.5 MG/ 0.5 ML SYRINGE IV ONE (07:10)
[2022-06-06] MEDS: NICOTINE 21MG/24HR 1 EA TRANSDERMAL TD PRN (07:51)
[2022-06-06] MEDS: MIRALAX *UNIT DOSE* 17GM PACKET PO SCH ×2 (08:40→21:00)
[2022-06-06] MEDS: oxyCODONE 15MG CR TAB PO SCH ×2 (08:40→21:53)
[2022-06-06] MEDS: METOPROLOL TART 25 MG TABLET PO SCH ×2 (08:40→21:53)
[2022-06-06] MEDS: SENOKOT S TAB PO SCH ×2 (08:41→21:00)
[2022-06-06] MEDS: PANTOPRAZOLE 40MG TAB (PROTONIX) PO SCH (08:41)
[2022-06-06 14:00] VITALS: BP 137/86
[2022-06-06] MEDS: oxyCODONE 5MG TAB PO PRN ×2 (16:35→21:52)
[2022-06-06] MEDS: RIVAROXABAN 20MG TAB (XARELTO) PO SCH (18:43)
[2022-06-06 22:00] VITALS: BP 156/87
[2022-06-07] MEDS ORDERED: KETOROLAC 30 MG/ML 1ML VIAL IV ONE ×2 (00:30→09:35)
[2022-06-07] MEDS: oxyCODONE 5MG TAB PO PRN (02:10)
[2022-06-07 06:00] VITALS: BP 155/87
[2022-06-07 06:50] VITALS: BP 155/87
[2022-06-07] MEDS: METOPROLOL TART 25 MG TABLET PO SCH (06:50)
[2022-06-07] MEDS: PANTOPRAZOLE 40MG TAB (PROTONIX) PO SCH (08:45)
[2022-06-07] MEDS: SENOKOT S TAB PO SCH (08:45)
[2022-06-07] MEDS: oxyCODONE 15MG CR TAB PO SCH (08:45)
[2022-06-07] MEDS: MIRALAX *UNIT DOSE* 17GM PACKET PO SCH (08:47)
[2022-06-07] MEDS: NICOTINE 21MG/24HR 1 EA TRANSDERMAL TD PRN (08:57)
[2022-06-07] MEDS ORDERED: HYDROMORPHONE HCL 0.5 MG/ 0.5 ML SYRINGE IV ONE (09:35)
[2022-06-07] MEDS ORDERED: IBUPROFEN 600MG TAB PO ONE (10:00)
[2022-06-07] MEDS ORDERED: oxyCODONE 5MG TAB PO ONE ×2 (10:00→11:30)
[2022-06-07] MEDS ORDERED: XARE20TA PO (11:24)
[2022-06-07] MEDS ORDERED: MIRA1POW3 PO (11:24)
[2022-06-07] MEDS ORDERED: METO1TAB87 PO (11:24)
[2022-06-07] MEDS ORDERED: OXYC-517 PO (11:24)
[2022-06-07] MEDS ORDERED: OXYC15TA66 PO (11:24)
[2022-06-07] MEDS ORDERED: SENN-52 PO (11:24)
[2022-06-07] MEDS ORDERED: NICO21PAT TD (11:24)
[2022-06-07] MEDS ORDERED: PANT40TA29 PO (11:24)
== END 2022-06-07 12:00 | DRG 308 ==
LOC: EDBD 05:02 → M ED 05:02 → M ED INP 09:28 → ENRESERV 11:55 → M ICU 14:00 → M MS5PR 06-01 23:40 → M PM&R 06-07 12:00
PROVIDERS: ADMIT Internal Medicine Nephrology; ATTEND General Practice
PROC: B246ZZZ Ultrasonography of Right and Left Heart (ICD-10-PCS; 2022-05-31)
PROC: 0QSB36Z Reposition Right Lower Femur with Intramedullary Internal Fixation Device, Percutaneous Approach (ICD-10-PCS; principal; 2022-06-01 07:00)
DX: S72.141A Displaced intertrochanteric fracture of right femur, initial encounter for closed fracture (principal); I10 Essential (primary) hypertension; E03.9 Hypothyroidism, unspecified; H91.91 Unspecified hearing loss, right ear; M54.9 Dorsalgia, unspecified; I48.91 Unspecified atrial fibrillation; F41.9 Anxiety disorder, unspecified; I16.0 Hypertensive urgency; W00.0XXA Fall on same level due to ice and snow, initial encounter; F17.200 Nicotine dependence, unspecified, uncomplicated; G89.29 Other chronic pain; Y92.9 Unspecified place or not applicable; Y93.9 Activity, unspecified; Y99.8 Other external cause status; Z79.899 Other long term (current) drug therapy; Z90.49 Acquired absence of other specified parts of digestive tract; Z91.14 Patient's other noncompliance with medication regimen

== ENCOUNTER 2022-06-03 14:39 | Inpatient (IN) | payer OTHER ==
[~2022-06-03] VITALS: Ht 175.3 cm; Wt 70.6 kg
[~2022-06-03 14:39] MED LIST changes: +ACET-897 PO; +CARV25TA PO; +CHLO25TA PO; +IBUP200T46 PO; +MED REC COMMENT; +MEDREC COMMENT; +NEUR300C PO; +TIZA10TA PO
[2022-06-07] MEDS ORDERED: ACETAMINOPHEN 500 MG TAB PO SCH (06:00)
[2022-06-07] MEDS ORDERED: OXYC-517 PO (11:24)
[2022-06-07] MEDS ORDERED: MIRA1POW3 PO (11:24)
[2022-06-07] MEDS ORDERED: NICO21PAT TD (11:24)
[2022-06-07] MEDS ORDERED: METO1TAB87 PO (11:24)
[2022-06-07] MEDS ORDERED: OXYC15TA66 PO (11:24)
[2022-06-07] MEDS ORDERED: PANT40TA29 PO (11:24)
[2022-06-07] MEDS ORDERED: SENN-52 PO (11:24)
[2022-06-07] MEDS ORDERED: XARE20TA PO (11:24)
[2022-06-07 14:00] VITALS: BP 163/87
[2022-06-07] MEDS ORDERED: ONDANSETRON 4MG TAB PO PRN (16:35)
[2022-06-07] MEDS ORDERED: PILL CUTTER 1 EACH XX PRN (16:55)
[2022-06-07] MEDS: **hydrALAZINE HCL** 25 MG TAB PO SCH ×2 (17:26→23:38)
[2022-06-07] MEDS: RIVAROXABAN 20MG TAB (XARELTO) PO SCH (17:26)
[2022-06-07] MEDS: oxyCODONE 5MG TAB PO PRN (17:28)
[2022-06-07 20:00] VITALS: BP 142/74
[2022-06-07] MEDS: SENNA 8.6 MG TAB (SENOKOT) PO SCH (21:00)
[2022-06-07] MEDS: MIRALAX *UNIT DOSE* 17GM PACKET PO SCH (21:00)
[2022-06-07] MEDS: DOCUSATE SODIUM 100MG CAPSULE PO SCH (21:00)
[2022-06-07] MEDS: REMEDY PHYTOPLEX Z-GUARD PASTE 113GM TUBE (FROM STOREROOM PRODUCT) TOP SCH (21:00)
[2022-06-07] MEDS: PANTOPRAZOLE 40MG TAB (PROTONIX) PO SCH (21:13)
[2022-06-07] MEDS: METOPROLOL TART 25 MG TABLET PO SCH (21:13)
[2022-06-07] MEDS: oxyCODONE 15MG CR TAB PO SCH (21:13)
[2022-06-07] MEDS: ACETAMINOPHEN 500 MG TAB PO SCH (21:14)
[2022-06-07] MEDS: IBUPROFEN 600MG TAB PO SCH (21:14)
[2022-06-08] MEDS: **hydrALAZINE HCL** 25 MG TAB PO SCH ×4 (05:20→23:52)
[2022-06-08] MEDS: ACETAMINOPHEN 500 MG TAB PO SCH ×3 (05:21→22:00)
[2022-06-08 06:00] VITALS: BP 110/80
[2022-06-08 06:50] LABS: BASO % 0.4 % (0.0-1.0); EOS # 0.3 10^3/uL (0.0-0.5); EOS % 2.7 % (0.0-3.0); HEMATOCRIT 35.6 % (42.0-52.0); HEMOGLOBIN 11.5 g/dl (13.5-17.5); LYMPH # 1.5 10^3/uL (1.5-5.0); LYMPH % 15.2 % (24.0-44.0); MEAN CORPUSCULAR HEMOGLOBIN 31.2 pg (27.0-33.0); MEAN CORPUSCULAR HGB CONC 32.3 g/dl (32.0-36.5); MEAN CORPUSCULAR VOLUME 96.5 fl (80.0-96.0); MONO # 1.1 10^3/uL (0.0-0.8); MONO % 10.9 % (2.0-8.0); NEUTROPHILS % 69.3 % (36.0-66.0); PLATELET COUNT, AUTOMATED 245 10^3/uL (150-450); RED BLOOD COUNT 3.69 10^6/uL (4.30-6.10); WHITE BLOOD COUNT 10.1 10^3/uL (4.0-10.0)
[2022-06-08 07:17] LABS: ALBUMIN 2.4 G/DL (3.2-5.2); ALKALINE PHOSPHATASE 171 U/L (46-116); ALT/SGPT 55 U/L (7.0-40); AST/SGOT 66 U/L (<34); BLOOD UREA NITROGEN 29 MG/DL (9-23); CALCIUM LEVEL 8.3 MG/DL (8.5-10.1); CARBON DIOXIDE LEVEL 26 MMOL/L (20-31); CHLORIDE LEVEL 102 MMOL/L (98-107); GLOMERULAR FILTRATION RATE > 60.0 (>56); GLUCOSE, FASTING 100 MG/DL (60-100); POTASSIUM SERUM 4.5 MMOL/L (3.5-5.1); SODIUM LEVEL 135 MMOL/L (136-145); TOTAL PROTEIN 6.2 G/DL (5.7-8.2)
[2022-06-08] MEDS: IBUPROFEN 600MG TAB PO SCH ×3 (08:54→20:15)
[2022-06-08] MEDS: oxyCODONE 15MG CR TAB PO SCH ×2 (08:54→20:15)
[2022-06-08] MEDS: PANTOPRAZOLE 40MG TAB (PROTONIX) PO SCH ×2 (08:55→20:15)
[2022-06-08] MEDS: NICOTINE 21MG/24HR 1 EA TRANSDERMAL TD SCH (08:57)
[2022-06-08] MEDS: REMEDY PHYTOPLEX Z-GUARD PASTE 113GM TUBE (FROM STOREROOM PRODUCT) TOP SCH ×3 (08:59→20:12)
[2022-06-08] MEDS: MIRALAX *UNIT DOSE* 17GM PACKET PO SCH ×2 (08:59→20:13)
[2022-06-08] MEDS: DOCUSATE SODIUM 100MG CAPSULE PO SCH ×2 (09:00→20:13)
[2022-06-08] MEDS: METOPROLOL TART 25 MG TABLET PO SCH ×2 (09:00→20:15)
[2022-06-08 14:00] VITALS: BP 120/75
[2022-06-08] MEDS: LIDOCAINE 5% (LIDODERM) PATCH TD SCH (16:32)
[2022-06-08] MEDS: RIVAROXABAN 20MG TAB (XARELTO) PO SCH (18:51)
[2022-06-08 20:00] VITALS: BP 116/58
[2022-06-08] MEDS: SENNA 8.6 MG TAB (SENOKOT) PO SCH (20:12)
[2022-06-08] MEDS: DICLOFENAC EPOLAMINE 1.3% PATCH TOP SCH (20:16)
[2022-06-08 23:53] VITALS: BP 116/64
[2022-06-09] MEDS: **hydrALAZINE HCL** 25 MG TAB PO SCH ×3 (05:28→17:39)
[2022-06-09] MEDS: ACETAMINOPHEN 500 MG TAB PO SCH ×3 (05:29→21:12)
[2022-06-09 06:00] VITALS: BP 120/72
[2022-06-09] MEDS: PANTOPRAZOLE 40MG TAB (PROTONIX) PO SCH ×2 (08:37→21:11)
[2022-06-09] MEDS: IBUPROFEN 600MG TAB PO SCH ×3 (08:37→21:10)
[2022-06-09] MEDS: MIRALAX *UNIT DOSE* 17GM PACKET PO SCH ×2 (08:38→21:00)
[2022-06-09] MEDS: METOPROLOL TART 25 MG TABLET PO SCH ×2 (08:38→21:11)
[2022-06-09] MEDS: oxyCODONE 15MG CR TAB PO SCH ×2 (08:38→21:11)
[2022-06-09] MEDS: DOCUSATE SODIUM 100MG CAPSULE PO SCH ×2 (08:38→21:00)
[2022-06-09] MEDS: REMEDY PHYTOPLEX Z-GUARD PASTE 113GM TUBE (FROM STOREROOM PRODUCT) TOP SCH ×3 (08:39→21:00)
[2022-06-09 08:58] LABS: BASO % 0.4 % (0.0-1.0); EOS # 0.1 10^3/uL (0.0-0.5); EOS % 1.4 % (0.0-3.0); HEMATOCRIT 36.4 % (42.0-52.0); HEMOGLOBIN 11.5 g/dl (13.5-17.5); LYMPH # 1.2 10^3/uL (1.5-5.0); LYMPH % 11.9 % (24.0-44.0); MEAN CORPUSCULAR HEMOGLOBIN 30.8 pg (27.0-33.0); MEAN CORPUSCULAR HGB CONC 31.6 g/dl (32.0-36.5); MEAN CORPUSCULAR VOLUME 97.6 fl (80.0-96.0); MONO # 0.9 10^3/uL (0.0-0.8); MONO % 8.6 % (2.0-8.0); NEUTROPHILS # 7.7 10^3/uL (1.5-8.5); PLATELET COUNT, AUTOMATED 288 10^3/uL (150-450); RED BLOOD COUNT 3.73 10^6/uL (4.30-6.10); WHITE BLOOD COUNT 10.2 10^3/uL (4.0-10.0)
[2022-06-09 09:12] LABS: BLOOD UREA NITROGEN 29 MG/DL (9-23); CALCIUM LEVEL 8.2 MG/DL (8.5-10.1); CARBON DIOXIDE LEVEL 28 MMOL/L (20-31); CHLORIDE LEVEL 104 MMOL/L (98-107); CREATININE FOR GFR 0.87 MG/DL (0.70-1.30); GLOMERULAR FILTRATION RATE > 60.0 (>56); GLUCOSE, FASTING 143 MG/DL (60-100); POTASSIUM SERUM 4.5 MMOL/L (3.5-5.1); SODIUM LEVEL 138 MMOL/L (136-145)
[2022-06-09] MEDS: NICOTINE 21MG/24HR 1 EA TRANSDERMAL TD SCH (12:19)
[2022-06-09] MEDS: LIDOCAINE 5% (LIDODERM) PATCH TD SCH (12:19)
[2022-06-09] MEDS: DICLOFENAC EPOLAMINE 1.3% PATCH TOP SCH ×2 (12:19→21:13)
[2022-06-09 14:00] VITALS: BP 133/71
[2022-06-09] MEDS: oxyCODONE 5MG TAB PO PRN (14:01)
[2022-06-09] MEDS: SODIUM CHLORIDE NASAL 0.65% SPRAY BTL (OCEAN) SCH ×2 (16:00→21:00)
[2022-06-09] MEDS: FLUTICASONE PROP 0.05% NASAL SPRAY 16 GM (FLONASE) NARES SCH ×2 (17:39→21:12)
[2022-06-09] MEDS: RIVAROXABAN 20MG TAB (XARELTO) PO SCH (17:39)
[2022-06-09 18:40] VITALS: BP 138/74
[2022-06-09] MEDS: SENNA 8.6 MG TAB (SENOKOT) PO SCH (21:00)
[2022-06-09] MEDS: MAGNESIUM OXIDE 400MG TAB (MAG-OX) PO SCH (21:11)
[2022-06-10] MEDS: **hydrALAZINE HCL** 25 MG TAB PO SCH ×4 (05:59→17:31)
[2022-06-10 06:00] VITALS: BP 140/82
[2022-06-10] MEDS: ACETAMINOPHEN 500 MG TAB PO SCH ×3 (06:00→21:59)
[2022-06-10] MEDS: oxyCODONE 5MG TAB PO PRN (06:35)
[2022-06-10] MEDS: MIRALAX *UNIT DOSE* 17GM PACKET PO SCH ×2 (09:00→22:00)
[2022-06-10] MEDS: SODIUM CHLORIDE NASAL 0.65% SPRAY BTL (OCEAN) SCH ×3 (09:00→22:00)
[2022-06-10] MEDS: REMEDY PHYTOPLEX Z-GUARD PASTE 113GM TUBE (FROM STOREROOM PRODUCT) TOP SCH ×3 (09:00→22:00)
[2022-06-10] MEDS: DOCUSATE SODIUM 100MG CAPSULE PO SCH ×2 (09:00→21:59)
[2022-06-10] MEDS: METOPROLOL TART 25 MG TABLET PO SCH ×2 (09:08→22:00)
[2022-06-10] MEDS: PANTOPRAZOLE 40MG TAB (PROTONIX) PO SCH ×2 (09:08→21:58)
[2022-06-10] MEDS: IBUPROFEN 600MG TAB PO SCH ×3 (09:09→22:00)
[2022-06-10] MEDS: FLUTICASONE PROP 0.05% NASAL SPRAY 16 GM (FLONASE) NARES SCH ×2 (09:09→22:00)
[2022-06-10] MEDS: LORATADINE 10 MG TAB PO SCH (09:09)
[2022-06-10] MEDS: LIDOCAINE 5% (LIDODERM) PATCH TD SCH (09:10)
[2022-06-10] MEDS: DICLOFENAC EPOLAMINE 1.3% PATCH TOP SCH ×2 (09:11→21:58)
[2022-06-10] MEDS: NICOTINE 21MG/24HR 1 EA TRANSDERMAL TD SCH (09:11)
[2022-06-10] MEDS: oxyCODONE 15MG CR TAB PO SCH ×2 (10:13→21:59)
[2022-06-10 14:00] VITALS: BP 154/84
[2022-06-10] MEDS: RIVAROXABAN 20MG TAB (XARELTO) PO SCH (17:31)
[2022-06-10 18:00] VITALS: BP 118/72
[2022-06-10 19:30] VITALS: BP 118/72
[2022-06-10] MEDS: MAGNESIUM OXIDE 400MG TAB (MAG-OX) PO SCH (21:58)
[2022-06-10] MEDS: SENNA 8.6 MG TAB (SENOKOT) PO SCH (22:00)
[2022-06-11] MEDS: **hydrALAZINE HCL** 25 MG TAB PO SCH ×5 (00:04→23:55)
[2022-06-11 06:00] VITALS: BP_SYST 130; BP_SYST 166; BP_DIAS 82; BP_DIAS 86
[2022-06-11] MEDS: ACETAMINOPHEN 500 MG TAB PO SCH ×3 (06:40→21:15)
[2022-06-11] MEDS: oxyCODONE 5MG TAB PO PRN (07:02)
[2022-06-11] MEDS: MIRALAX *UNIT DOSE* 17GM PACKET PO SCH ×2 (09:00→21:00)
[2022-06-11] MEDS: SODIUM CHLORIDE NASAL 0.65% SPRAY BTL (OCEAN) SCH ×3 (09:00→21:00)
[2022-06-11] MEDS: REMEDY PHYTOPLEX Z-GUARD PASTE 113GM TUBE (FROM STOREROOM PRODUCT) TOP SCH ×3 (09:00→21:00)
[2022-06-11] MEDS: DOCUSATE SODIUM 100MG CAPSULE PO SCH ×2 (09:00→21:00)
[2022-06-11] MEDS: DICLOFENAC EPOLAMINE 1.3% PATCH TOP SCH ×2 (09:05→21:17)
[2022-06-11] MEDS: LIDOCAINE 5% (LIDODERM) PATCH TD SCH (09:05)
[2022-06-11] MEDS: PANTOPRAZOLE 40MG TAB (PROTONIX) PO SCH ×2 (09:06→21:15)
[2022-06-11] MEDS: IBUPROFEN 600MG TAB PO SCH ×3 (09:06→21:15)
[2022-06-11] MEDS: LORATADINE 10 MG TAB PO SCH (09:06)
[2022-06-11] MEDS: METOPROLOL TART 25 MG TABLET PO SCH ×2 (09:06→21:16)
[2022-06-11] MEDS: FLUTICASONE PROP 0.05% NASAL SPRAY 16 GM (FLONASE) NARES SCH ×2 (09:10→21:17)
[2022-06-11] MEDS: NICOTINE 21MG/24HR 1 EA TRANSDERMAL TD SCH (09:10)
[2022-06-11 10:20] LABS: BASO % 0.4 % (0.0-1.0); EOS # 0.2 10^3/uL (0.0-0.5); EOS % 2.2 % (0.0-3.0); HEMATOCRIT 37.1 % (42.0-52.0); HEMOGLOBIN 11.4 g/dl (13.5-17.5); LYMPH # 1.5 10^3/uL (1.5-5.0); LYMPH % 17.8 % (24.0-44.0); MEAN CORPUSCULAR HEMOGLOBIN 30.2 pg (27.0-33.0); MEAN CORPUSCULAR HGB CONC 30.7 g/dl (32.0-36.5); MEAN CORPUSCULAR VOLUME 98.4 fl (80.0-96.0); MONO # 1.1 10^3/uL (0.0-0.8); MONO % 13.1 % (2.0-8.0); NEUTROPHILS # 5.4 10^3/uL (1.5-8.5); NEUTROPHILS % 65.6 % (36.0-66.0); PLATELET COUNT, AUTOMATED 374 10^3/uL (150-450); RED BLOOD COUNT 3.77 10^6/uL (4.30-6.10); WHITE BLOOD COUNT 8.2 10^3/uL (4.0-10.0)
[2022-06-11 10:48] LABS: BLOOD UREA NITROGEN 28 MG/DL (9-23); CALCIUM LEVEL 8.5 MG/DL (8.5-10.1); CARBON DIOXIDE LEVEL 26 MMOL/L (20-31); CHLORIDE LEVEL 106 MMOL/L (98-107); CREATININE FOR GFR 0.85 MG/DL (0.70-1.30); GLOMERULAR FILTRATION RATE > 60.0 (>56); GLUCOSE, FASTING 96 MG/DL (60-100); POTASSIUM SERUM 4.5 MMOL/L (3.5-5.1); SODIUM LEVEL 139 MMOL/L (136-145)
[2022-06-11] MEDS: oxyCODONE 15MG CR TAB PO SCH ×2 (11:51→21:14)
[2022-06-11 14:00] VITALS: BP 132/84
[2022-06-11] MEDS: RIVAROXABAN 20MG TAB (XARELTO) PO SCH (17:31)
[2022-06-11 20:00] VITALS: BP 142/77
[2022-06-11] MEDS: SENNA 8.6 MG TAB (SENOKOT) PO SCH (21:00)
[2022-06-11] MEDS: MAGNESIUM OXIDE 400MG TAB (MAG-OX) PO SCH (21:14)
[2022-06-12 06:00] VITALS: BP 122/80
[2022-06-12] MEDS: **hydrALAZINE HCL** 25 MG TAB PO SCH ×3 (06:12→16:58)
[2022-06-12] MEDS: ACETAMINOPHEN 500 MG TAB PO SCH ×3 (06:12→21:04)
[2022-06-12] MEDS: SODIUM CHLORIDE NASAL 0.65% SPRAY BTL (OCEAN) SCH ×3 (08:04→20:59)
[2022-06-12] MEDS: DOCUSATE SODIUM 100MG CAPSULE PO SCH ×2 (08:04→20:59)
[2022-06-12] MEDS: MIRALAX *UNIT DOSE* 17GM PACKET PO SCH ×2 (08:04→20:59)
[2022-06-12] MEDS: REMEDY PHYTOPLEX Z-GUARD PASTE 113GM TUBE (FROM STOREROOM PRODUCT) TOP SCH ×3 (08:05→20:58)
[2022-06-12] MEDS: LIDOCAINE 5% (LIDODERM) PATCH TD SCH (08:55)
[2022-06-12] MEDS: DICLOFENAC EPOLAMINE 1.3% PATCH TOP SCH ×2 (08:55→21:02)
[2022-06-12] MEDS: NICOTINE 21MG/24HR 1 EA TRANSDERMAL TD SCH (08:55)
[2022-06-12] MEDS: IBUPROFEN 600MG TAB PO SCH ×3 (08:56→21:04)
[2022-06-12] MEDS: FLUTICASONE PROP 0.05% NASAL SPRAY 16 GM (FLONASE) NARES SCH ×2 (08:56→21:00)
[2022-06-12] MEDS: METOPROLOL TART 25 MG TABLET PO SCH ×2 (08:56→21:04)
[2022-06-12] MEDS: LORATADINE 10 MG TAB PO SCH (08:56)
[2022-06-12] MEDS: PANTOPRAZOLE 40MG TAB (PROTONIX) PO SCH ×2 (08:56→21:04)
[2022-06-12] MEDS: oxyCODONE 15MG CR TAB PO SCH ×2 (08:56→21:05)
[2022-06-12 11:15] VITALS: BP 137/81
[2022-06-12 14:00] VITALS: BP 137/79
[2022-06-12 16:47] VITALS: BP 130/70
[2022-06-12] MEDS: RIVAROXABAN 20MG TAB (XARELTO) PO SCH (16:57)
[2022-06-12 20:00] VITALS: BP 134/70
[2022-06-12] MEDS: SENNA 8.6 MG TAB (SENOKOT) PO SCH (20:59)
[2022-06-12] MEDS: MAGNESIUM OXIDE 400MG TAB (MAG-OX) PO SCH (21:05)
[2022-06-13] MEDS: **hydrALAZINE HCL** 25 MG TAB PO SCH ×5 (05:17→23:57)
[2022-06-13] MEDS: ACETAMINOPHEN 500 MG TAB PO SCH ×3 (05:17→21:27)
[2022-06-13 06:00] VITALS: BP 130/70
[2022-06-13] MEDS: NICOTINE 21MG/24HR 1 EA TRANSDERMAL TD SCH (08:44)
[2022-06-13] MEDS: DICLOFENAC EPOLAMINE 1.3% PATCH TOP SCH ×2 (08:44→21:30)
[2022-06-13] MEDS: LIDOCAINE 5% (LIDODERM) PATCH TD SCH (08:44)
[2022-06-13] MEDS: MIRALAX *UNIT DOSE* 17GM PACKET PO SCH ×2 (08:45→21:00)
[2022-06-13] MEDS: METOPROLOL TART 25 MG TABLET PO SCH ×2 (08:45→21:27)
[2022-06-13] MEDS: oxyCODONE 15MG CR TAB PO SCH ×2 (08:45→21:28)
[2022-06-13] MEDS: LORATADINE 10 MG TAB PO SCH (08:45)
[2022-06-13] MEDS: FUROSEMIDE 20 MG TAB PO SCH (08:45)
[2022-06-13] MEDS: DOCUSATE SODIUM 100MG CAPSULE PO SCH ×2 (08:45→21:00)
[2022-06-13] MEDS: PANTOPRAZOLE 40MG TAB (PROTONIX) PO SCH ×2 (08:45→21:29)
[2022-06-13] MEDS: SODIUM CHLORIDE NASAL 0.65% SPRAY BTL (OCEAN) SCH ×3 (08:46→21:00)
[2022-06-13] MEDS: IBUPROFEN 600MG TAB PO SCH ×3 (08:46→21:27)
[2022-06-13] MEDS: REMEDY PHYTOPLEX Z-GUARD PASTE 113GM TUBE (FROM STOREROOM PRODUCT) TOP SCH ×3 (08:46→21:00)
[2022-06-13] MEDS: FLUTICASONE PROP 0.05% NASAL SPRAY 16 GM (FLONASE) NARES SCH ×2 (08:46→21:00)
[2022-06-13 12:04] VITALS: BP 136/84
[2022-06-13 13:58] VITALS: BP 140/74
[2022-06-13 16:53] VITALS: BP 137/82
[2022-06-13] MEDS: RIVAROXABAN 20MG TAB (XARELTO) PO SCH (17:01)
[2022-06-13 20:00] VITALS: BP 142/80
[2022-06-13] MEDS: SENNA 8.6 MG TAB (SENOKOT) PO SCH (21:00)
[2022-06-13] MEDS: MAGNESIUM OXIDE 400MG TAB (MAG-OX) PO SCH (21:28)
[2022-06-14] MEDS: **hydrALAZINE HCL** 25 MG TAB PO SCH ×3 (05:24→17:58)
[2022-06-14] MEDS: ACETAMINOPHEN 500 MG TAB PO SCH ×3 (05:25→21:39)
[2022-06-14 07:13] LABS: BASO % 0.4 % (0.0-1.0); EOS # 0.2 10^3/uL (0.0-0.5); EOS % 3.6 % (0.0-3.0); HEMATOCRIT 30.7 % (42.0-52.0); HEMOGLOBIN 9.6 g/dl (13.5-17.5); LYMPH # 1.3 10^3/uL (1.5-5.0); LYMPH % 22.7 % (24.0-44.0); MEAN CORPUSCULAR HEMOGLOBIN 31.1 pg (27.0-33.0); MEAN CORPUSCULAR HGB CONC 31.3 g/dl (32.0-36.5); MEAN CORPUSCULAR VOLUME 99.4 fl (80.0-96.0); MONO # 0.6 10^3/uL (0.0-0.8); MONO % 11.1 % (2.0-8.0); NEUTROPHILS # 3.4 10^3/uL (1.5-8.5); NEUTROPHILS % 61.3 % (36.0-66.0); PLATELET COUNT, AUTOMATED 269 10^3/uL (150-450); RED BLOOD COUNT 3.09 10^6/uL (4.30-6.10); WHITE BLOOD COUNT 5.6 10^3/uL (4.0-10.0)
[2022-06-14 07:41] LABS: BLOOD UREA NITROGEN 26 MG/DL (9-23); CALCIUM LEVEL 7.9 MG/DL (8.5-10.1); CARBON DIOXIDE LEVEL 28 MMOL/L (20-31); CHLORIDE LEVEL 108 MMOL/L (98-107); CREATININE FOR GFR 0.96 MG/DL (0.70-1.30); GLOMERULAR FILTRATION RATE > 60.0 (>56); GLUCOSE, FASTING 89 MG/DL (60-100); POTASSIUM SERUM 4.4 MMOL/L (3.5-5.1); SODIUM LEVEL 142 MMOL/L (136-145)
[2022-06-14] MEDS: REMEDY PHYTOPLEX Z-GUARD PASTE 113GM TUBE (FROM STOREROOM PRODUCT) TOP SCH ×3 (09:00→21:00)
[2022-06-14] MEDS: SODIUM CHLORIDE NASAL 0.65% SPRAY BTL (OCEAN) SCH ×3 (09:00→21:40)
[2022-06-14] MEDS: LIDOCAINE 5% (LIDODERM) PATCH TD SCH (09:00)
[2022-06-14] MEDS: MIRALAX *UNIT DOSE* 17GM PACKET PO SCH ×2 (09:00→21:00)
[2022-06-14] MEDS: DOCUSATE SODIUM 100MG CAPSULE PO SCH ×2 (09:00→21:40)
[2022-06-14] MEDS: DICLOFENAC EPOLAMINE 1.3% PATCH TOP SCH ×2 (09:35→21:41)
[2022-06-14] MEDS: PANTOPRAZOLE 40MG TAB (PROTONIX) PO SCH ×2 (09:35→21:40)
[2022-06-14] MEDS: NICOTINE 21MG/24HR 1 EA TRANSDERMAL TD SCH (09:35)
[2022-06-14] MEDS: IBUPROFEN 600MG TAB PO SCH ×3 (09:36→21:39)
[2022-06-14] MEDS: oxyCODONE 15MG CR TAB PO SCH ×2 (09:36→21:38)
[2022-06-14] MEDS: LORATADINE 10 MG TAB PO SCH (09:36)
[2022-06-14] MEDS: FUROSEMIDE 20 MG TAB PO SCH (09:36)
[2022-06-14] MEDS: METOPROLOL TART 25 MG TABLET PO SCH ×2 (09:37→21:40)
[2022-06-14] MEDS: FLUTICASONE PROP 0.05% NASAL SPRAY 16 GM (FLONASE) NARES SCH ×2 (09:38→21:40)
[2022-06-14 14:00] VITALS: BP 114/67
[2022-06-14] MEDS: RIVAROXABAN 20MG TAB (XARELTO) PO SCH (17:58)
[2022-06-14 20:00] VITALS: BP 148/84
[2022-06-14] MEDS: SENNA 8.6 MG TAB (SENOKOT) PO SCH (21:00)
[2022-06-14] MEDS: MAGNESIUM OXIDE 400MG TAB (MAG-OX) PO SCH (21:38)
[2022-06-15] MEDS: **hydrALAZINE HCL** 25 MG TAB PO SCH ×3 (00:04→11:39)
[2022-06-15] MEDS: ACETAMINOPHEN 500 MG TAB PO SCH ×2 (05:57→13:59)
[2022-06-15 06:00] VITALS: BP 138/91
[2022-06-15] MEDS: LORATADINE 10 MG TAB PO SCH (08:44)
[2022-06-15] MEDS: IBUPROFEN 600MG TAB PO SCH (08:44)
[2022-06-15] MEDS: NICOTINE 21MG/24HR 1 EA TRANSDERMAL TD SCH (08:44)
[2022-06-15] MEDS: PANTOPRAZOLE 40MG TAB (PROTONIX) PO SCH (08:44)
[2022-06-15] MEDS: FUROSEMIDE 20 MG TAB PO SCH (08:45)
[2022-06-15] MEDS: oxyCODONE 15MG CR TAB PO SCH (08:45)
[2022-06-15] MEDS: DOCUSATE SODIUM 100MG CAPSULE PO SCH (08:46)
[2022-06-15] MEDS: METOPROLOL TART 25 MG TABLET PO SCH (08:46)
[2022-06-15] MEDS: SODIUM CHLORIDE NASAL 0.65% SPRAY BTL (OCEAN) SCH (08:46)
[2022-06-15] MEDS: FLUTICASONE PROP 0.05% NASAL SPRAY 16 GM (FLONASE) NARES SCH (08:46)
[2022-06-15] MEDS: DICLOFENAC EPOLAMINE 1.3% PATCH TOP SCH (08:46)
[2022-06-15] MEDS: MIRALAX *UNIT DOSE* 17GM PACKET PO SCH (08:46)
[2022-06-15] MEDS: LIDOCAINE 5% (LIDODERM) PATCH TD SCH (08:47)
[2022-06-15] MEDS: REMEDY PHYTOPLEX Z-GUARD PASTE 113GM TUBE (FROM STOREROOM PRODUCT) TOP SCH (08:47)
[2022-06-15] MEDS ORDERED: METO1TAB87 PO (09:39)
[2022-06-15] MEDS ORDERED: PANT40TA29 PO (09:39)
[2022-06-15] MEDS ORDERED: OXYC15TA66 PO (09:39)
[2022-06-15] MEDS ORDERED: XARE20TA PO (09:39)
[2022-06-15] MEDS ORDERED: NICO21PAT TD (09:39)
[2022-06-15] MEDS ORDERED: HYDR-643 PO (09:40)
[2022-06-15] MEDS ORDERED: OXYC-517 PO (09:40)
[2022-06-15 11:39] VITALS: BP 133/78
[2022-06-15 14:04] VITALS: BP 136/70
[2022-06-16] MEDS ORDERED: HYDR-643 PO (10:31)
[2022-06-16] MEDS ORDERED: METO1TAB87 PO (10:31)
[2022-06-16] MEDS ORDERED: PROT1TAB2 PO (10:31)
[2022-06-16] MEDS ORDERED: NICO21DI37 TOP (10:31)
[2022-06-16] MEDS ORDERED: OXYC-517 PO (10:31)
[2022-06-16] MEDS ORDERED: XARE20TA PO (10:31)
== END 2022-06-15 15:25 | disposition home or self-care (01) | DRG 862 ==
LOC: M PM&R 06-07 14:30
PROVIDERS: ADMIT Physical Medicine & Rehabilitation; ATTEND Physical Medicine & Rehabilitation
DX: S72.141D Displaced intertrochanteric fracture of right femur, subsequent encounter for closed fracture with routine healing (principal); I48.91 Unspecified atrial fibrillation; I10 Essential (primary) hypertension; Z74.09 Other reduced mobility; E03.9 Hypothyroidism, unspecified; H91.91 Unspecified hearing loss, right ear; E78.5 Hyperlipidemia, unspecified; M54.50 Low back pain, unspecified; F41.9 Anxiety disorder, unspecified; F32.A Depression, unspecified; Z74.1 Need for assistance with personal care; F17.200 Nicotine dependence, unspecified, uncomplicated; M25.551 Pain in right hip; Z90.49 Acquired absence of other specified parts of digestive tract; Z79.01 Long term (current) use of anticoagulants; Z79.891 Long term (current) use of opiate analgesic; Z79.899 Other long term (current) drug therapy

== ENCOUNTER 2022-07-05 12:01 | Emergency (ER) | payer OTHER ==
[~2022-07-05] VITALS: Ht 175.3 cm; Wt 72.0 kg
[~2022-07-05 12:01] MED LIST changes: +HYDR-643 PO; +METO1TAB87 PO; +MIRA1POW3 PO; +NICO21DI37 TOP; +NICO21PAT TD; +OXYC-517 PO; +OXYC15TA66 PO; +PANT40TA29 PO; +PROT1TAB2 PO; +SENN-52 PO; +XARE20TA PO
[2022-07-05 13:24] LABS: BASO % 0.3 % (0.0-1.0); EOS # 0.1 10^3/uL (0.0-0.5); EOS % 1.8 % (0.0-3.0); HEMATOCRIT 40.5 % (42.0-52.0); HEMOGLOBIN 12.7 g/dl (13.5-17.5); LYMPH # 1.2 10^3/uL (1.5-5.0); LYMPH % 18.2 % (24.0-44.0); MEAN CORPUSCULAR HEMOGLOBIN 30.5 pg (27.0-33.0); MEAN CORPUSCULAR HGB CONC 31.4 g/dl (32.0-36.5); MEAN CORPUSCULAR VOLUME 97.4 fl (80.0-96.0); MONO # 0.6 10^3/uL (0.0-0.8); MONO % 9.2 % (2.0-8.0); NEUTROPHILS # 4.8 10^3/uL (1.5-8.5); NEUTROPHILS % 70.4 % (36.0-66.0); PLATELET COUNT, AUTOMATED 179 10^3/uL (150-450); RED BLOOD COUNT 4.16 10^6/uL (4.30-6.10); WHITE BLOOD COUNT 6.8 10^3/uL (4.0-10.0)
[2022-07-05 13:51] LABS: BLOOD UREA NITROGEN 18 MG/DL (9-23); CARBON DIOXIDE LEVEL 30 MMOL/L (20-31); CHLORIDE LEVEL 106 MMOL/L (98-107); CREATININE FOR GFR 0.89 MG/DL (0.70-1.30); GLOMERULAR FILTRATION RATE > 60.0 (>56); GLUCOSE, FASTING 99 MG/DL (60-100); POTASSIUM SERUM 4.4 MMOL/L (3.5-5.1); SODIUM LEVEL 141 MMOL/L (136-145)
[2022-07-05] MEDS ORDERED: LIDOCAINE W/EPINEPHRINE 1% 20ML VIAL SC ONE (17:25)
[2022-07-05] MEDS ORDERED: METOPROLOL TART 25 MG TABLET PO ONE (17:25)
[2022-07-05] MEDS ORDERED: PERCOCET 5MG/325MG TAB PO ONE (17:25)
[2022-07-05] MEDS ORDERED: BOOSTRIX/ADACEL VACCINE (DIPHTH/PERTUSS/ACELL/TETANUS) 0.5ML SYR IM.IMMUN ONE (18:00)
[2022-07-05 19:15] VITALS: BP 195/107
[2022-07-05] MEDS ORDERED: LABETALOL 100MG/20ML VIAL IV STA (19:15)
[2022-07-05 19:47] VITALS: BP 162/91
== END 2022-07-05 21:17 | disposition home or self-care (01) ==
LOC: M ED 12:01
DX: S81.811A Laceration without foreign body, right lower leg, initial encounter (principal); W26.9XXA Contact with unspecified sharp object(s), initial encounter; Y92.009 Unspecified place in unspecified non-institutional (private) residence as the place of occurrence of the external cause; F17.200 Nicotine dependence, unspecified, uncomplicated; Z79.899 Other long term (current) drug therapy

== ENCOUNTER 2022-07-25 12:17 | Inpatient (IN) | payer OTHER ==
[~2022-07-25] VITALS: Ht 175.3 cm; Wt 69.1 kg
[2022-07-25] MEDS ORDERED: MORPHINE 2 MG/ML 1ML VIAL IV ONE (12:35)
[2022-07-25 12:52] LABS: BASO # 0.1 10^3/uL (0.0-0.2); BASO % 0.2 % (0.0-1.0); HEMATOCRIT 46.1 % (42.0-52.0); HEMOGLOBIN 14.9 g/dl (13.5-17.5); LYMPH # 0.9 10^3/uL (1.5-5.0); LYMPH % 3.7 % (24.0-44.0); MEAN CORPUSCULAR HEMOGLOBIN 30.5 pg (27.0-33.0); MEAN CORPUSCULAR HGB CONC 32.3 g/dl (32.0-36.5); MEAN CORPUSCULAR VOLUME 94.5 fl (80.0-96.0); MONO # 0.8 10^3/uL (0.0-0.8); MONO % 3.3 % (2.0-8.0); NEUTROPHILS # 23.3 10^3/uL (1.5-8.5); NEUTROPHILS % 92.2 % (36.0-66.0); PLATELET COUNT, AUTOMATED 269 10^3/uL (150-450); RED BLOOD COUNT 4.88 10^6/uL (4.30-6.10); WHITE BLOOD COUNT 25.3 10^3/uL (4.0-10.0)
[2022-07-25 13:03] LABS: INR 1.43; PROTHROMBIN TIME 17.7 SECONDS (12.5-14.5)
[2022-07-25 13:04] LABS: PARTIAL THROMBOPLASTIN TIME 32.2 SECONDS (24.8-34.2)
[2022-07-25 13:24] LABS: ALBUMIN 3.1 G/DL (3.2-5.2); ALKALINE PHOSPHATASE 191 U/L (46-116); ALT/SGPT 22 U/L (7.0-40); AST/SGOT 20 U/L (<34); BILIRUBIN,DIRECT 0.6 MG/DL (<0.4); BILIRUBIN,TOTAL 1.4 MG/DL (0.3-1.2); BLOOD UREA NITROGEN 24 MG/DL (9-23); CALCIUM LEVEL 9.3 MG/DL (8.5-10.1); CARBON DIOXIDE LEVEL 24 MMOL/L (20-31); CHLORIDE LEVEL 103 MMOL/L (98-107); CREATININE FOR GFR 1.01 MG/DL (0.70-1.30); FREE T4 1.21 NG/DL (0.89-1.76); GLOMERULAR FILTRATION RATE > 60.0 (>56); GLUCOSE, FASTING 136 MG/DL (60-100); POTASSIUM SERUM 3.8 MMOL/L (3.5-5.1); RSV AMPLIFICATION NEGATIVE (NEGATIVE); SODIUM LEVEL 138 MMOL/L (136-145); THYROID STIMULATING HORMONE 2.683 uIU/ML (0.55-4.78); TOTAL PROTEIN 7.8 G/DL (5.7-8.2)
[2022-07-25] MEDS ORDERED: ISOVUE-370 76% 100ML VIAL As Ordered ONE (13:32)
[2022-07-25] MEDS ORDERED: PIPERACILLIN/TAZOBACTAM SOD 4.5 GM in D5W MINI-BAG PLUS 50 ML IV ONE (13:35)
[2022-07-25] MEDS: METOPROLOL 5 MG/5 ML VIAL IV SCH ×3 (13:58→14:43)
[2022-07-25] MEDS ORDERED: NICOTINE 21MG/24HR 1 EA TRANSDERMAL TD ONE (15:35)
[2022-07-25] MEDS ORDERED: LEVALBUTEROL 1.25MG 0.5ML CONCENTRATE NEB NEB PRN (15:35)
[2022-07-25] MEDS: ACETAMINOPHEN TAB 650MG DOSE (2X325MG) PO PRN ×2 (15:56→20:07)
[2022-07-25] MEDS ORDERED: METO1TAB87 PO (15:58)
[2022-07-25] MEDS ORDERED: XARE20TA PO (15:58)
[2022-07-25] MEDS ORDERED: HOME MED LIST COMPLETE! XX SCH (16:00)
[2022-07-25] MEDS: METOPROLOL TART 25 MG TABLET PO SCH ×2 (16:05→20:11)
[2022-07-25 17:55] VITALS: BP 122/94
[2022-07-25] MEDS: LACTOBACILLUS ACIDOPHILUS CAP (BACID) PO SCH (17:59)
[2022-07-25] MEDS: RIVAROXABAN 20MG TAB (XARELTO) PO SCH (17:59)
[2022-07-25] MEDS ORDERED: VANCOMYCIN HCL 750 MG, VIAL MATE ADAPTER 1 EACH in D5W 250 ML IV ONE ×2 (18:00→19:00)
[2022-07-25 20:00] VITALS: BP 141/92
[2022-07-25] MEDS: PIPERACILLIN/TAZOBACTAM SOD 3.375 GM in D5W MINI-BAG PLUS 50 ML IV SCH (20:06)
[2022-07-25] MEDS: DOXYCYCLINE HYCLATE 100MG TABLET PO SCH (20:11)
[2022-07-25] MEDS: MORPHINE 2 MG/ML 1ML VIAL IV PRN (23:36)
[2022-07-25 23:41] VITALS: BP 145/83
[2022-07-26] MEDS: PIPERACILLIN/TAZOBACTAM SOD 3.375 GM in D5W MINI-BAG PLUS 50 ML IV SCH ×4 (02:10→20:38)
[2022-07-26 04:00] VITALS: BP 107/65
[2022-07-26] MEDS ORDERED: VANCOMYCIN HCL 750 MG, VIAL MATE ADAPTER 1 EACH in NS 250 ML IV SCH (06:00)
[2022-07-26 07:26] LABS: HEMATOCRIT 40.8 % (42.0-52.0); MEAN CORPUSCULAR HGB CONC 31.4 g/dl (32.0-36.5); MEAN CORPUSCULAR VOLUME 95.8 fl (80.0-96.0); PLATELET COUNT, AUTOMATED 212 10^3/uL (150-450); RED BLOOD COUNT 4.26 10^6/uL (4.30-6.10); WHITE BLOOD COUNT 12.1 10^3/uL (4.0-10.0)
[2022-07-26 07:34] LABS: HEMOGLOBIN 12.8 g/dl (13.5-17.5)
[2022-07-26 07:57] LABS: ALBUMIN 2.4 G/DL (3.2-5.2); ALKALINE PHOSPHATASE 155 U/L (46-116); ALT/SGPT 29 U/L (7.0-40); AST/SGOT 38 U/L (<34); BILIRUBIN,TOTAL 0.3 MG/DL (0.3-1.2); BLOOD UREA NITROGEN 22 MG/DL (9-23); CALCIUM LEVEL 8.1 MG/DL (8.5-10.1); CARBON DIOXIDE LEVEL 25 MMOL/L (20-31); CHLORIDE LEVEL 106 MMOL/L (98-107); CREATININE FOR GFR 0.92 MG/DL (0.70-1.30); GLOMERULAR FILTRATION RATE > 60.0 (>56); GLUCOSE, FASTING 103 MG/DL (60-100); POTASSIUM SERUM 3.6 MMOL/L (3.5-5.1); SODIUM LEVEL 139 MMOL/L (136-145); TOTAL PROTEIN 6.3 G/DL (5.7-8.2)
[2022-07-26 08:47] VITALS: BP 130/81
[2022-07-26] MEDS: LACTOBACILLUS ACIDOPHILUS CAP (BACID) PO SCH ×2 (08:50→18:29)
[2022-07-26] MEDS: DOXYCYCLINE HYCLATE 100MG TABLET PO SCH ×2 (08:50→20:38)
[2022-07-26] MEDS: METOPROLOL TART 25 MG TABLET PO SCH ×2 (08:51→20:38)
[2022-07-26] MEDS: MORPHINE 2 MG/ML 1ML VIAL IV PRN ×4 (09:06→22:43)
[2022-07-26 11:59] VITALS: BP 131/88
[2022-07-26 16:40] VITALS: BP 142/98
[2022-07-26] MEDS: RIVAROXABAN 20MG TAB (XARELTO) PO SCH (18:29)
[2022-07-26 19:59] VITALS: BP 148/92
[2022-07-26] MEDS: ACETAMINOPHEN TAB 650MG DOSE (2X325MG) PO PRN (20:39)
[2022-07-27] MEDS: PIPERACILLIN/TAZOBACTAM SOD 3.375 GM in D5W MINI-BAG PLUS 50 ML IV SCH ×2 (01:54→08:45)
[2022-07-27] MEDS: ACETAMINOPHEN TAB 650MG DOSE (2X325MG) PO PRN (02:54)
[2022-07-27] MEDS: MORPHINE 2 MG/ML 1ML VIAL IV PRN (02:54)
[2022-07-27 06:03] VITALS: BP 140/92
[2022-07-27 06:27] LABS: HEMATOCRIT 41.2 % (42.0-52.0); MEAN CORPUSCULAR HEMOGLOBIN 30.4 pg (27.0-33.0); MEAN CORPUSCULAR HGB CONC 31.6 g/dl (32.0-36.5); MEAN CORPUSCULAR VOLUME 96.5 fl (80.0-96.0); PLATELET COUNT, AUTOMATED 235 10^3/uL (150-450); RED BLOOD COUNT 4.27 10^6/uL (4.30-6.10); WHITE BLOOD COUNT 8.5 10^3/uL (4.0-10.0)
[2022-07-27 06:54] LABS: ALBUMIN 2.4 G/DL (3.2-5.2); ALKALINE PHOSPHATASE 166 U/L (46-116); ALT/SGPT 41 U/L (7.0-40); AST/SGOT 48 U/L (<34); BILIRUBIN,TOTAL 0.3 MG/DL (0.3-1.2); BLOOD UREA NITROGEN 20 MG/DL (9-23); CALCIUM LEVEL 8.1 MG/DL (8.5-10.1); CARBON DIOXIDE LEVEL 26 MMOL/L (20-31); CHLORIDE LEVEL 107 MMOL/L (98-107); CREATININE FOR GFR 0.96 MG/DL (0.70-1.30); GLOMERULAR FILTRATION RATE > 60.0 (>56); GLUCOSE, FASTING 110 MG/DL (60-100); POTASSIUM SERUM 3.6 MMOL/L (3.5-5.1); SODIUM LEVEL 141 MMOL/L (136-145); TOTAL PROTEIN 6.1 G/DL (5.7-8.2)
[2022-07-27] MEDS: LACTOBACILLUS ACIDOPHILUS CAP (BACID) PO SCH (08:45)
[2022-07-27] MEDS: DOXYCYCLINE HYCLATE 100MG TABLET PO SCH (08:45)
[2022-07-27 08:51] VITALS: BP 152/96
[2022-07-27] MEDS: METOPROLOL TART 25 MG TABLET PO SCH (08:51)
[2022-07-27] MEDS ORDERED: DOXY100T PO ×2 (11:05→14:39)
[2022-07-27] MEDS ORDERED: ACET1TAB55 PO ×2 (11:05→14:39)
[2022-07-27] MEDS ORDERED: LEVO1TAB40 PO ×2 (11:05→14:39)
[2022-07-27] MEDS ORDERED: OXYC-517 PO ×2 (11:08→14:39)
== END 2022-07-27 14:57 | disposition home or self-care (01) | DRG 720 ==
LOC: M ED 12:17 → EDBD 12:17 → M ED INP 15:32 → ENRESERV 16:36 → M PCU 17:37 → M MSPAV 07-26 16:29
PROVIDERS: ADMIT Internal Medicine; ATTEND Family Medicine
DX: A41.9 Sepsis, unspecified organism (principal); I10 Essential (primary) hypertension; I96 Gangrene, not elsewhere classified; M51.36 Other intervertebral disc degeneration, lumbar region; F41.9 Anxiety disorder, unspecified; F32.A Depression, unspecified; I48.20 Chronic atrial fibrillation, unspecified; F17.200 Nicotine dependence, unspecified, uncomplicated; J18.9 Pneumonia, unspecified organism; H91.91 Unspecified hearing loss, right ear; Z20.822 Contact with and (suspected) exposure to COVID-19; Z79.01 Long term (current) use of anticoagulants; Z90.49 Acquired absence of other specified parts of digestive tract; Z79.899 Other long term (current) drug therapy; T34.531A Frostbite with tissue necrosis of right finger(s), initial encounter

== ENCOUNTER 2022-09-29 08:09 | Day surgery (SDC) | payer OTHER ==
[~2022-09-29] VITALS: Ht 175.3 cm; Wt 70.8 kg
[~2022-09-29 08:09] MED LIST changes: +ACET1TAB55 PO; +DOXY100T PO; +LEVO1TAB40 PO
[2022-09-29] MEDS ORDERED: LR 1,000 ML IV SCH (09:30)
[2022-09-29] MEDS ORDERED: MIDAZOLAM INJ 2MG/2ML VIAL As Ordered ONE (09:32)
[2022-09-29] MEDS ORDERED: fentaNYL 100 MCG/2 ML INJECTION As Ordered ONE (09:32)
[2022-09-29] MEDS ORDERED: KETOROLAC 60MG 2ML VIAL As Ordered ONE (09:33)
[2022-09-29] MEDS ORDERED: ACETAMINOPHEN 1000MG 100ML IV BAG As Ordered ONE (09:33)
[2022-09-29] MEDS ORDERED: ONDANSETRON 4MG 2ML VIAL As Ordered ONE (09:33)
[2022-09-29] MEDS ORDERED: propofoL 200 MG/20 ML VIAL As Ordered ONE ×2 (09:34→11:16)
[2022-09-29] MEDS ORDERED: LIDOCAINE 2% 100MG/5ML SDV (FOR ANES.) As Ordered ONE (09:34)
[2022-09-29] MEDS ORDERED: BUPIVACAINE HCL 0.25% 30ML VIAL As Ordered ONE (10:52)
[2022-09-29] MEDS ORDERED: BACITRACIN OINTMENT 30GM TUBE As Ordered ONE (10:52)
[2022-09-29 10:53] LABS: HEMATOCRIT 39.9 % (42.0-52.0); MEAN CORPUSCULAR HEMOGLOBIN 29.4 pg (27.0-33.0); MEAN CORPUSCULAR HGB CONC 32.6 g/dl (32.0-36.5); MEAN CORPUSCULAR VOLUME 90.3 fl (80.0-96.0); PLATELET COUNT, AUTOMATED 179 10^3/uL (150-450); RED BLOOD COUNT 4.42 10^6/uL (4.30-6.10); WHITE BLOOD COUNT 7.1 10^3/uL (4.0-10.0)
[2022-09-29] MEDS ORDERED: ceFAZolin 2 GM/D5W 50 ML IV BAG As Ordered ONE (11:10)
[2022-09-29] MEDS ORDERED: KETAMINE HCL 200MG/20ML VIAL As Ordered ONE (11:18)
[2022-09-29] MEDS ORDERED: GLYCOPYRROLATE INJ 0.2 MG/ML 2 ML VIAL As Ordered ONE (11:19)
[2022-09-29 11:21] LABS: BLOOD UREA NITROGEN 25 MG/DL (9-23); CALCIUM LEVEL 8.7 MG/DL (8.5-10.1); CARBON DIOXIDE LEVEL 22 MMOL/L (20-31); CHLORIDE LEVEL 112 MMOL/L (98-107); CREATININE FOR GFR 0.86 MG/DL (0.70-1.30); GLOMERULAR FILTRATION RATE > 60.0 (>56); GLUCOSE, FASTING 89 MG/DL (60-100); POTASSIUM SERUM 3.7 MMOL/L (3.5-5.1); SODIUM LEVEL 143 MMOL/L (136-145)
[2022-09-29] MEDS ORDERED: oxyCODONE 5MG TAB PO PRN (11:45)
[2022-09-29] MEDS ORDERED: ONDANSETRON 4MG 2ML VIAL IV PRN (11:45)
[2022-09-29] MEDS ORDERED: fentaNYL 100 MCG/2 ML INJECTION IV PRN (11:45)
[2022-09-29] MEDS ORDERED: MORPHINE 2 MG/ML 1ML VIAL IV PRN (11:45)
[2022-09-29 13:00] VITALS: BP 170/99
== END 2022-09-29 14:00 | disposition home or self-care (01) ==
LOC: EEVIPCON 08:09 → M SDC 08:09
PROVIDERS: ATTEND Orthopaedic Surgery Hand Surgery
DX: T34.531A Frostbite with tissue necrosis of right finger(s), initial encounter (principal); X31.XXXA Exposure to excessive natural cold, initial encounter; Y92.89 Other specified places as the place of occurrence of the external cause; B96.89 Other specified bacterial agents as the cause of diseases classified elsewhere; I48.91 Unspecified atrial fibrillation; I10 Essential (primary) hypertension; F32.A Depression, unspecified; F41.9 Anxiety disorder, unspecified; M19.90 Unspecified osteoarthritis, unspecified site; R06.83 Snoring; F17.210 Nicotine dependence, cigarettes, uncomplicated; Z79.899 Other long term (current) drug therapy; Z79.01 Long term (current) use of anticoagulants; Z79.2 Long term (current) use of antibiotics
CPT/HCPCS: 11044; 36415; 80048; 85027; 87070; 87075; 87077; 87186; 93005; J0131; J0690; J1100; J1885; J2250; J2405; J3010

== ENCOUNTER → 2022-10-07 | Outpatient (CLI) | payer OTHER | LOC: M SOG 10:08 | PROVIDERS: ATTEND Physician Assistant | DX: T34.531A Frostbite with tissue necrosis of right finger(s), initial encounter (principal); Z89.021 Acquired absence of right finger(s) ==

== ENCOUNTER 2023-01-26 02:52 | Inpatient (IN) | payer OTHER ==
[~2023-01-26] VITALS: Ht 175.3 cm; Wt 77.8 kg
[~2023-01-26 02:52] MED LIST changes: -GABA-283 PO; +GABA-284 PO
[2023-01-26] MEDS ORDERED: METOPROLOL TART 50 MG TAB PO ONE (04:30)
[2023-01-26] MEDS ORDERED: APIXABAN 5 MG TAB (ELIQUIS) PO ONE (04:30)
[2023-01-26] MEDS: METOPROLOL 5 MG/5 ML VIAL IV SCH ×6 (04:41→06:00)
[2023-01-26 04:49] LABS: BASO % 0.4 % (0.0-1.0); EOS # 0.1 10^3/uL (0.0-0.5); EOS % 0.6 % (0.0-3.0); HEMATOCRIT 42.3 % (42.0-52.0); HEMOGLOBIN 13.5 g/dl (13.5-17.5); LYMPH # 0.7 10^3/uL (1.5-5.0); MEAN CORPUSCULAR HEMOGLOBIN 30.5 pg (27.0-33.0); MEAN CORPUSCULAR HGB CONC 31.9 g/dl (32.0-36.5); MEAN CORPUSCULAR VOLUME 95.7 fl (80.0-96.0); MONO # 0.9 10^3/uL (0.0-0.8); MONO % 8.7 % (2.0-8.0); NEUTROPHILS # 8.5 10^3/uL (1.5-8.5); PLATELET COUNT, AUTOMATED 199 10^3/uL (150-450); RED BLOOD COUNT 4.42 10^6/uL (4.30-6.10); WHITE BLOOD COUNT 10.2 10^3/uL (4.0-10.0)
[2023-01-26 05:04] LABS: ALBUMIN 3.2 G/DL (3.2-5.2); ALKALINE PHOSPHATASE 204 U/L (46-116); ALT/SGPT 53 U/L (7.0-40); AST/SGOT 50 U/L (<34); BILIRUBIN,DIRECT 0.5 MG/DL (<0.4); BLOOD UREA NITROGEN 22 MG/DL (9-23); CALCIUM LEVEL 8.4 MG/DL (8.5-10.1); CARBON DIOXIDE LEVEL 20 MMOL/L (20-31); CHLORIDE LEVEL 110 MMOL/L (98-107); CREATININE FOR GFR 1.01 MG/DL (0.70-1.30); GLOMERULAR FILTRATION RATE > 60.0 (>56); GLUCOSE, FASTING 92 MG/DL (60-100); POTASSIUM SERUM 4.2 MMOL/L (3.5-5.1); SODIUM LEVEL 142 MMOL/L (136-145); TOTAL PROTEIN 7.3 G/DL (5.7-8.2)
[2023-01-26] MEDS ORDERED: FUROSEMIDE 40MG/4ML VIAL IV ONE (05:10)
[2023-01-26] MEDS ORDERED: ACETAMINOPHEN TAB 650MG DOSE (2X325MG) PO PRN (06:10)
[2023-01-26] MEDS ORDERED: METO25TA4 PO (06:41)
[2023-01-26] MEDS ORDERED: XARE20TA PO (06:41)
[2023-01-26] MEDS ORDERED: HOME MED LIST COMPLETE! XX SCH (06:45)
[2023-01-26] MEDS ORDERED: FUROSEMIDE 40MG/4ML VIAL IV SCH ×2 (09:00→15:00)
[2023-01-26] MEDS ORDERED: METOPROLOL TART 25 MG TABLET PO SCH ×2 (09:00→12:00)
[2023-01-26] MEDS: ALBUTEROL 90 MCG/ACT 8GM HFA INHALER INH SCH ×3 (12:53→20:16)
[2023-01-26 15:56] LABS: BLOOD UREA NITROGEN 24 MG/DL (9-23); CALCIUM LEVEL 8.4 MG/DL (8.5-10.1); CARBON DIOXIDE LEVEL 26 MMOL/L (20-31); CHLORIDE LEVEL 109 MMOL/L (98-107); CREATININE FOR GFR 1.24 MG/DL (0.70-1.30); GLOMERULAR FILTRATION RATE > 60.0 (>56); GLUCOSE, FASTING 103 MG/DL (60-100); MAGNESIUM LEVEL 1.6 MG/DL (1.8-2.4); POTASSIUM SERUM 3.9 MMOL/L (3.5-5.1); SODIUM LEVEL 143 MMOL/L (136-145)
[2023-01-26 16:46] VITALS: BP 147/96; TEMP 98; O2SAT 97
[2023-01-26] MEDS ORDERED: NS 500 ML IV ONE (17:20)
[2023-01-26] MEDS ORDERED: POTASSIUM CHLORIDE 10MEQ SR TABLET PO ONE (17:30)
[2023-01-26] MEDS: MAG SULF 1GM/100ML (MAG RUN) 1 GM in IV 1 EA IV SCH ×2 (18:20→20:33)
[2023-01-26] MEDS: RIVAROXABAN 20MG TAB (XARELTO) PO SCH (18:21)
[2023-01-26 20:00] VITALS: BP 125/93; TEMP 98.4; O2SAT 93
[2023-01-26] MEDS: MAGNESIUM OXIDE 400MG TAB (MAG-OX) PO SCH (20:32)
[2023-01-26] MEDS: METOPROLOL TART 25 MG TABLET PO SCH (20:32)
[2023-01-26 23:21] VITALS: BP 136/105; TEMP 97.9; O2SAT 95
[2023-01-27 04:13] VITALS: BP 137/88; TEMP 98.2; O2SAT 93
[2023-01-27 05:08] LABS: BASO % 0.7 % (0.0-1.0); EOS # 0.3 10^3/uL (0.0-0.5); EOS % 4.3 % (0.0-3.0); HEMATOCRIT 41.1 % (42.0-52.0); HEMOGLOBIN 12.9 g/dl (13.5-17.5); LYMPH # 1.9 10^3/uL (1.5-5.0); LYMPH % 32.5 % (24.0-44.0); MEAN CORPUSCULAR HGB CONC 31.4 g/dl (32.0-36.5); MEAN CORPUSCULAR VOLUME 95.6 fl (80.0-96.0); MONO # 0.7 10^3/uL (0.0-0.8); MONO % 12.1 % (2.0-8.0); NEUTROPHILS % 50.2 % (36.0-66.0); PLATELET COUNT, AUTOMATED 224 10^3/uL (150-450); WHITE BLOOD COUNT 5.9 10^3/uL (4.0-10.0)
[2023-01-27 05:42] LABS: ALBUMIN 2.9 G/DL (3.2-5.2); ALKALINE PHOSPHATASE 165 U/L (46-116); ALT/SGPT 47 U/L (7.0-40); AST/SGOT 43 U/L (<34); BILIRUBIN,DIRECT 0.4 MG/DL (<0.4); BILIRUBIN,TOTAL 0.6 MG/DL (0.3-1.2); BLOOD UREA NITROGEN 30 MG/DL (9-23); CALCIUM LEVEL 8.4 MG/DL (8.5-10.1); CARBON DIOXIDE LEVEL 25 MMOL/L (20-31); CHLORIDE LEVEL 110 MMOL/L (98-107); CREATININE FOR GFR 1.26 MG/DL (0.70-1.30); GLOMERULAR FILTRATION RATE > 60.0 (>56); GLUCOSE, FASTING 93 MG/DL (60-100); POTASSIUM SERUM 4.3 MMOL/L (3.5-5.1); SODIUM LEVEL 143 MMOL/L (136-145); TOTAL PROTEIN 6.8 G/DL (5.7-8.2)
[2023-01-27 07:24] VITALS: BP 134/88; TEMP 97.7; O2SAT 96
[2023-01-27] MEDS: ALBUTEROL 90 MCG/ACT 8GM HFA INHALER INH SCH ×4 (07:29→18:53)
[2023-01-27] MEDS: METOPROLOL TART 25 MG TABLET PO SCH ×2 (08:36→20:34)
[2023-01-27] MEDS: MAGNESIUM OXIDE 400MG TAB (MAG-OX) PO SCH ×2 (08:36→20:35)
[2023-01-27 12:00] VITALS: BP 121/95; TEMP 97.8; O2SAT 94
[2023-01-27] MEDS ORDERED: OLANZapine ORAL DISINTEGRATING TAB 5MG PO PRN (12:50)
[2023-01-27] MEDS: POTASSIUM CHLORIDE 10MEQ SR TABLET PO SCH (13:32)
[2023-01-27] MEDS ORDERED: FUROSEMIDE 40MG/4ML VIAL IV ONE (14:00)
[2023-01-27 16:00] VITALS: BP 137/93; TEMP 98.1; O2SAT 98
[2023-01-27] MEDS: RIVAROXABAN 20MG TAB (XARELTO) PO SCH (18:33)
[2023-01-27 20:26] VITALS: BP 139/94; TEMP 98.3; O2SAT 97
[2023-01-28 01:25] VITALS: BP 138/87; TEMP 98.2; O2SAT 98
[2023-01-28 06:36] VITALS: BP 126/94; TEMP 97.9; O2SAT 97
[2023-01-28 07:52] LABS: BASO % 0.6 % (0.0-1.0); EOS # 0.3 10^3/uL (0.0-0.5); EOS % 4.1 % (0.0-3.0); HEMATOCRIT 41.9 % (42.0-52.0); HEMOGLOBIN 13.1 g/dl (13.5-17.5); LYMPH # 1.9 10^3/uL (1.5-5.0); LYMPH % 29.6 % (24.0-44.0); MEAN CORPUSCULAR HGB CONC 31.3 g/dl (32.0-36.5); MEAN CORPUSCULAR VOLUME 96.1 fl (80.0-96.0); MONO # 0.7 10^3/uL (0.0-0.8); MONO % 10.7 % (2.0-8.0); NEUTROPHILS # 3.5 10^3/uL (1.5-8.5); NEUTROPHILS % 54.8 % (36.0-66.0); PLATELET COUNT, AUTOMATED 200 10^3/uL (150-450); RED BLOOD COUNT 4.36 10^6/uL (4.30-6.10); WHITE BLOOD COUNT 6.4 10^3/uL (4.0-10.0)
[2023-01-28] MEDS: ALBUTEROL 90 MCG/ACT 8GM HFA INHALER INH SCH ×4 (08:00→20:00)
[2023-01-28 08:16] LABS: BLOOD UREA NITROGEN 29 MG/DL (9-23); CALCIUM LEVEL 8.1 MG/DL (8.5-10.1); CARBON DIOXIDE LEVEL 24 MMOL/L (20-31); CHLORIDE LEVEL 108 MMOL/L (98-107); CREATININE FOR GFR 1.19 MG/DL (0.70-1.30); GLOMERULAR FILTRATION RATE > 60.0 (>56); GLUCOSE, FASTING 99 MG/DL (60-100); POTASSIUM SERUM 4.7 MMOL/L (3.5-5.1); SODIUM LEVEL 140 MMOL/L (136-145)
[2023-01-28 08:57] LABS: HEPATITIS B CORE ANTIBODY IGM NEGATIVE (NEGATIVE)
[2023-01-28 09:07] LABS: HEPATITIS C VIRUS ABY INDEX > 11.00 INDEX (<0.8)
[2023-01-28] MEDS: POTASSIUM CHLORIDE 10MEQ SR TABLET PO SCH (09:51)
[2023-01-28] MEDS: MAGNESIUM OXIDE 400MG TAB (MAG-OX) PO SCH ×2 (09:51→20:36)
[2023-01-28] MEDS: METOPROLOL TART 25 MG TABLET PO SCH ×2 (09:51→20:36)
[2023-01-28] MEDS ORDERED: FUROSEMIDE 40MG/4ML VIAL IV ONE (12:40)
[2023-01-28 14:00] VITALS: BP 127/96; TEMP 98.1; O2SAT 95
[2023-01-28] MEDS: RIVAROXABAN 20MG TAB (XARELTO) PO SCH (19:05)
[2023-01-28 20:32] VITALS: BP 129/95; TEMP 98.2; O2SAT 96
[2023-01-29 06:59] VITALS: BP 148/98; TEMP 98.2; O2SAT 97
[2023-01-29 07:02] LABS: HEMATOCRIT 42.8 % (42.0-52.0); HEMOGLOBIN 13.4 g/dl (13.5-17.5); MEAN CORPUSCULAR HEMOGLOBIN 30.3 pg (27.0-33.0); MEAN CORPUSCULAR HGB CONC 31.3 g/dl (32.0-36.5); MEAN CORPUSCULAR VOLUME 96.8 fl (80.0-96.0); PLATELET COUNT, AUTOMATED 207 10^3/uL (150-450); RED BLOOD COUNT 4.42 10^6/uL (4.30-6.10); WHITE BLOOD COUNT 5.9 10^3/uL (4.0-10.0)
[2023-01-29] MEDS: ALBUTEROL 90 MCG/ACT 8GM HFA INHALER INH SCH ×4 (07:24→20:09)
[2023-01-29 07:31] LABS: BLOOD UREA NITROGEN 31 MG/DL (9-23); CALCIUM LEVEL 8.2 MG/DL (8.5-10.1); CARBON DIOXIDE LEVEL 27 MMOL/L (20-31); CHLORIDE LEVEL 105 MMOL/L (98-107); CREATININE FOR GFR 1.14 MG/DL (0.70-1.30); GLOMERULAR FILTRATION RATE > 60.0 (>56); GLUCOSE, FASTING 93 MG/DL (60-100); POTASSIUM SERUM 4.2 MMOL/L (3.5-5.1); SODIUM LEVEL 140 MMOL/L (136-145)
[2023-01-29 07:56] LABS: ATYPICAL LYMPH 12 % (0-5); BASOPHILS 1 % (0-1); EOSINOPHILS 4 % (0-3); LYMPHOCYTES 22 % (16-44); MONOCYTES 9 % (0-5); NEUTROPHILS 52 % (28-66); PLATELET ESTIMATE NORMAL (NORMAL)
[2023-01-29] MEDS: MAGNESIUM OXIDE 400MG TAB (MAG-OX) PO SCH ×2 (08:31→20:16)
[2023-01-29] MEDS: POTASSIUM CHLORIDE 10MEQ SR TABLET PO SCH (08:31)
[2023-01-29] MEDS: METOPROLOL TART 25 MG TABLET PO SCH ×2 (08:34→19:58)
[2023-01-29] MEDS ORDERED: FUROSEMIDE 40MG/4ML VIAL IV SCH (09:00)
[2023-01-29 14:00] VITALS: BP 139/94; TEMP 98.1; O2SAT 98
[2023-01-29] MEDS ORDERED: FUROSEMIDE 20MG/2ML VIAL IV SCH (17:00)
[2023-01-29] MEDS: RIVAROXABAN 20MG TAB (XARELTO) PO SCH (17:16)
[2023-01-29 20:00] VITALS: BP 137/92; TEMP 96.6; O2SAT 96
[2023-01-29 20:12] VITALS: O2SAT 93
[2023-01-30 05:03] VITALS: BP 131/98; TEMP 98.4; O2SAT 98
[2023-01-30 06:23] LABS: HEMATOCRIT 42.3 % (42.0-52.0); MEAN CORPUSCULAR HEMOGLOBIN 29.7 pg (27.0-33.0); MEAN CORPUSCULAR HGB CONC 30.7 g/dl (32.0-36.5); MEAN CORPUSCULAR VOLUME 96.6 fl (80.0-96.0); PLATELET COUNT, AUTOMATED 183 10^3/uL (150-450); RED BLOOD COUNT 4.38 10^6/uL (4.30-6.10); WHITE BLOOD COUNT 5.4 10^3/uL (4.0-10.0)
[2023-01-30 06:46] LABS: BLOOD UREA NITROGEN 29 MG/DL (9-23); CALCIUM LEVEL 8.4 MG/DL (8.5-10.1); CARBON DIOXIDE LEVEL 29 MMOL/L (20-31); CHLORIDE LEVEL 105 MMOL/L (98-107); CREATININE FOR GFR 1.21 MG/DL (0.70-1.30); GLOMERULAR FILTRATION RATE > 60.0 (>56); GLUCOSE, FASTING 94 MG/DL (60-100); POTASSIUM SERUM 4.2 MMOL/L (3.5-5.1); SODIUM LEVEL 142 MMOL/L (136-145)
[2023-01-30 06:57] LABS: ATYPICAL LYMPH 14 % (0-5); EOSINOPHILS 3 % (0-3); LYMPHOCYTES 19 % (16-44); MONOCYTES 11 % (0-5); NEUTROPHILS 53 % (28-66)
[2023-01-30 06:59] LABS: PLATELET ESTIMATE NORMAL (NORMAL)
[2023-01-30] MEDS: ALBUTEROL 90 MCG/ACT 8GM HFA INHALER INH SCH ×4 (07:24→20:05)
[2023-01-30] MEDS ORDERED: FUROSEMIDE 40MG/4ML VIAL IV SCH (09:00)
[2023-01-30] MEDS: METOPROLOL TART 25 MG TABLET PO SCH ×2 (09:30→21:10)
[2023-01-30] MEDS: POTASSIUM CHLORIDE 10MEQ SR TABLET PO SCH (09:32)
[2023-01-30] MEDS: MAGNESIUM OXIDE 400MG TAB (MAG-OX) PO SCH ×2 (09:33→21:09)
[2023-01-30 14:00] VITALS: BP 137/98; TEMP 97.5; O2SAT 98
[2023-01-30] MEDS: RIVAROXABAN 20MG TAB (XARELTO) PO SCH (17:44)
[2023-01-30] MEDS: TORSEMIDE 20 MG TAB PO SCH (17:44)
[2023-01-30 20:05] VITALS: O2SAT 93
[2023-01-30 21:21] VITALS: BP 126/79; TEMP 97.9; O2SAT 95
[2023-01-31 06:08] VITALS: BP 124/85; TEMP 97.5; O2SAT 98
[2023-01-31 06:54] LABS: HEMATOCRIT 41.8 % (42.0-52.0); HEMOGLOBIN 13.2 g/dl (13.5-17.5); MEAN CORPUSCULAR HEMOGLOBIN 30.1 pg (27.0-33.0); MEAN CORPUSCULAR HGB CONC 31.6 g/dl (32.0-36.5); MEAN CORPUSCULAR VOLUME 95.4 fl (80.0-96.0); PLATELET COUNT, AUTOMATED 198 10^3/uL (150-450); RED BLOOD COUNT 4.38 10^6/uL (4.30-6.10); WHITE BLOOD COUNT 5.8 10^3/uL (4.0-10.0)
[2023-01-31 07:21] LABS: BLOOD UREA NITROGEN 28 MG/DL (9-23); CALCIUM LEVEL 8.4 MG/DL (8.5-10.1); CARBON DIOXIDE LEVEL 29 MMOL/L (20-31); CHLORIDE LEVEL 105 MMOL/L (98-107); CREATININE FOR GFR 1.25 MG/DL (0.70-1.30); GLOMERULAR FILTRATION RATE > 60.0 (>56); GLUCOSE, FASTING 89 MG/DL (60-100); POTASSIUM SERUM 4.2 MMOL/L (3.5-5.1); SODIUM LEVEL 143 MMOL/L (136-145)
[2023-01-31] MEDS: ALBUTEROL 90 MCG/ACT 8GM HFA INHALER INH SCH ×2 (07:29→11:14)
[2023-01-31 07:38] LABS: ATYPICAL LYMPH 8 % (0-5); BASOPHILS 1 % (0-1); EOSINOPHILS 2 % (0-3); LYMPHOCYTES 25 % (16-44); MONOCYTES 6 % (0-5); NEUTROPHILS 58 % (28-66)
[2023-01-31 07:39] LABS: PLATELET ESTIMATE NORMAL (NORMAL)
[2023-01-31] MEDS: MAGNESIUM OXIDE 400MG TAB (MAG-OX) PO SCH (08:40)
[2023-01-31] MEDS: POTASSIUM CHLORIDE 10MEQ SR TABLET PO SCH (08:40)
[2023-01-31] MEDS: TORSEMIDE 20 MG TAB PO SCH (08:40)
[2023-01-31 08:42] VITALS: BP 124/84
[2023-01-31] MEDS: METOPROLOL TART 25 MG TABLET PO SCH (08:42)
[2023-01-31] MEDS ORDERED: TORS20TA2 PO (09:13)
[2023-01-31] MEDS ORDERED: POTA-136 PO (09:13)
[2023-01-31] MEDS ORDERED: MAGN400T2 PO (09:14)
[2023-01-31] MEDS ORDERED: XARE20TA PO (09:18)
[2023-01-31] MEDS ORDERED: METO25TA4 PO (09:18)
== END 2023-01-31 13:45 | disposition home or self-care (01) | DRG 201 ==
LOC: M ED 02:52 → M ED INP 06:07 → M PCU 16:39 → M MS5PR 01-28 01:17
PROVIDERS: ADMIT Internal Medicine; ATTEND Internal Medicine Nephrology
PROC: B246ZZZ Ultrasonography of Right and Left Heart (ICD-10-PCS; principal; 2023-01-26)
DX: I48.91 Unspecified atrial fibrillation (principal); I50.23 Acute on chronic systolic (congestive) heart failure; I11.0 Hypertensive heart disease with heart failure; I27.20 Pulmonary hypertension, unspecified; I16.0 Hypertensive urgency; M54.50 Low back pain, unspecified; G89.29 Other chronic pain; F41.9 Anxiety disorder, unspecified; F32.A Depression, unspecified; F17.200 Nicotine dependence, unspecified, uncomplicated; T45.516A Underdosing of anticoagulants, initial encounter; R74.01 Elevation of levels of liver transaminase levels; F11.10 Opioid abuse, uncomplicated; H91.91 Unspecified hearing loss, right ear; Z91.128 Patient's intentional underdosing of medication regimen for other reason; Z90.49 Acquired absence of other specified parts of digestive tract; Z87.81 Personal history of (healed) traumatic fracture

== ENCOUNTER 2023-03-29 15:05 | Emergency (ER) | payer MEDICAID, OTHER ==
[~2023-03-29] VITALS: Ht 175.3 cm; Wt 71.4 kg
[~2023-03-29 15:05] MED LIST changes: +MAGN400T2 PO; +METO25TA4 PO; +POTA-136 PO; +TORS20TA2 PO
[2023-03-29] MEDS ORDERED: NS 1,000 ML IV ONE (17:40)
[2023-03-29 19:30] LABS: BASO % 0.2 % (0.0-1.0); HEMATOCRIT 48.4 % (42.0-52.0); HEMOGLOBIN 15.5 g/dl (13.5-17.5); LYMPH # 1.8 10^3/uL (1.5-5.0); LYMPH % 14.4 % (24.0-44.0); MEAN CORPUSCULAR HEMOGLOBIN 29.4 pg (27.0-33.0); MEAN CORPUSCULAR VOLUME 91.7 fl (80.0-96.0); MONO # 1.3 10^3/uL (0.0-0.8); NEUTROPHILS # 9.6 10^3/uL (1.5-8.5); NEUTROPHILS % 75.2 % (36.0-66.0); PLATELET COUNT, AUTOMATED 156 10^3/uL (150-450); RED BLOOD COUNT 5.28 10^6/uL (4.30-6.10); WHITE BLOOD COUNT 12.7 10^3/uL (4.0-10.0)
[2023-03-29 19:36] LABS: ERYTHROCYTE SEDIMENTATION RATE 63 mm/hr (0-20)
[2023-03-29 19:43] LABS: PROTHROMBIN TIME 59.3 SECONDS (12.5-14.5)
[2023-03-29 19:50] LABS: INR 7.27
[2023-03-29 19:57] LABS: THYROID STIMULATING HORMONE 4.726 uIU/ML (0.55-4.78); THYROXINE (T4) 6.4 UG/DL (4.5-10.9)
[2023-03-29] MEDS ORDERED: PHYTONADIONE 5 MG TAB PO ONE (20:00)
[2023-03-29 20:04] LABS: ALBUMIN 3.1 G/DL (3.2-5.2); ALKALINE PHOSPHATASE 182 U/L (46-116); ALT/SGPT 62 U/L (7.0-40); AST/SGOT 93 U/L (<34); BILIRUBIN,DIRECT 0.8 MG/DL (<0.4); BILIRUBIN,TOTAL 1.7 MG/DL (0.3-1.2); BLOOD UREA NITROGEN 27 MG/DL (9-23); CARBON DIOXIDE LEVEL 23 MMOL/L (20-31); CHLORIDE LEVEL 102 MMOL/L (98-107); CPK CREATINE PHOSPHOKINASE 245 U/L (46-171); CREATININE FOR GFR 1.18 MG/DL (0.70-1.30); GLOMERULAR FILTRATION RATE > 60.0 (>56); GLUCOSE, FASTING 87 MG/DL (60-100); POTASSIUM SERUM 5.6 MMOL/L (3.5-5.1); SODIUM LEVEL 136 MMOL/L (136-145); TOTAL PROTEIN 8.3 G/DL (5.7-8.2)
[2023-03-29 20:08] LABS: ABG BASE EXCESS -3.7 (-2.0-2.0); ABG HCO3 18.3 MMOL/L (22.0-26.0); ABG O2 SATURATION 98.5 % (95.0-99.0); ABG PARTIAL PRESSURE CO2 25.9 mmHg (35.0-45.0); ABG PARTIAL PRESSURE O2 115.9 mmHg (75.0-100.0); ABG STANDARD HCO3 21.4 MMOL/L. (22.0-26.0); ABG TOTAL CO2 19.1 MMOL/L (22.0-29.0); ABG pH (ARTERIAL) 7.468 UNITS (7.350-7.450)
[2023-03-29 20:18] LABS: CK-MB VALUE MASS 1.7 NG/ML (<3.6); MB/CK RELATIVE INDEX 0.69 (< OR =4)
[2023-03-29 20:53] LABS: HEPATITIS B CORE ANTIBODY IGM NEGATIVE (NEGATIVE)
[2023-03-29 21:14] LABS: HEPATITIS C VIRUS ABY INDEX > 11.00 INDEX (<0.8)
[2023-03-29 21:22] LABS: AMPHETAMINES LEVEL URINE NEGATIVE (NEGATIVE); BARBITURATES URINE NEGATIVE (NEGATIVE); BENZODIAZEPINES URINE NEGATIVE (NEGATIVE); CANNABINOIDS URINE NEGATIVE (NEGATIVE); COCAINE METABOLITE URINE NEGATIVE (NEGATIVE); METHADONE URINE NEGATIVE (NEGATIVE); OPIATES URINE NEGATIVE (NEGATIVE); PHENCYCLIDINE URINE NEGATIVE (NEGATIVE)
[2023-03-29 21:34] LABS: PROTHROMBIN TIME 53.6 SECONDS (12.5-14.5)
[2023-03-29 21:38] LABS: INR 6.38
[2023-03-29 21:50] LABS: CK-MB VALUE MASS 1.6 NG/ML (<3.6)
[2023-03-29 21:53] LABS: MB/CK RELATIVE INDEX 0.95 (< OR =4)
[2023-03-29 21:58] LABS: ETHYL ALCOHOL (ETHANOL) 0.009 % (0.000-0.010); SALICYLATE LEVEL < 3.0 MG/DL (<30)
[2023-03-29 23:07] LABS: RSV AMPLIFICATION NEGATIVE (NEGATIVE)
[2023-03-30 00:20] VITALS: TEMP 98.4
[2023-03-30] MEDS ORDERED: LIDOCAINE 5% (LIDODERM) PATCH TD ONE (00:50)
[2023-03-30] MEDS ORDERED: CEPH500C PO (01:09)
[2023-03-30] MEDS ORDERED: LIDO5DIS41 TD (01:09)
[2023-03-30 01:45] VITALS: BP 120/87; O2SAT 98
== END 2023-03-30 02:05 | disposition home or self-care (01) ==
LOC: M ED 15:05
DX: L03.115 Cellulitis of right lower limb (principal); D68.69 Other thrombophilia; B19.20 Unspecified viral hepatitis C without hepatic coma; I48.91 Unspecified atrial fibrillation; I10 Essential (primary) hypertension; M25.551 Pain in right hip; K21.9 Gastro-esophageal reflux disease without esophagitis; E03.9 Hypothyroidism, unspecified; F41.9 Anxiety disorder, unspecified; F32.A Depression, unspecified; F17.200 Nicotine dependence, unspecified, uncomplicated; F19.10 Other psychoactive substance abuse, uncomplicated; Z79.01 Long term (current) use of anticoagulants; Z79.899 Other long term (current) drug therapy

== ENCOUNTER → 2023-04-04 | Outpatient (CLI) | payer OTHER ==
[~2023-04-04] MED LIST changes: +CEPH500C PO; +LIDO5DIS41 TD
[2023-04-04 18:42] LABS: HEMATOCRIT 40.9 % (42.0-52.0); MEAN CORPUSCULAR HEMOGLOBIN 29.3 pg (27.0-33.0); MEAN CORPUSCULAR HGB CONC 31.8 g/dl (32.0-36.5); MEAN CORPUSCULAR VOLUME 92.1 fl (80.0-96.0); PLATELET COUNT, AUTOMATED 292 10^3/uL (150-450); RED BLOOD COUNT 4.44 10^6/uL (4.30-6.10); WHITE BLOOD COUNT 7.9 10^3/uL (4.0-10.0)
[2023-04-04 18:48] LABS: INR 1.29; PROTHROMBIN TIME 15.7 SECONDS (12.5-14.5)
[2023-04-04 18:49] LABS: PARTIAL THROMBOPLASTIN TIME 33.7 SECONDS (24.8-34.2)
== END ==
LOC: M LAB 17:47
PROVIDERS: ATTEND Physician Assistant Medical
DX: Z79.01 Long term (current) use of anticoagulants (principal)

== ENCOUNTER 2023-04-16 09:27 | Emergency (ER) | payer OTHER ==
[~2023-04-16] VITALS: Ht 175.3 cm; Wt 68.2 kg
[2023-04-16 10:14] LABS: BASO % 0.5 % (0.0-1.0); EOS # 0.1 10^3/uL (0.0-0.5); EOS % 1.3 % (0.0-3.0); HEMATOCRIT 40.7 % (42.0-52.0); HEMOGLOBIN 13.2 g/dl (13.5-17.5); LYMPH # 1.6 10^3/uL (1.5-5.0); LYMPH % 19.9 % (24.0-44.0); MEAN CORPUSCULAR HEMOGLOBIN 30.1 pg (27.0-33.0); MEAN CORPUSCULAR HGB CONC 32.4 g/dl (32.0-36.5); MEAN CORPUSCULAR VOLUME 92.9 fl (80.0-96.0); MONO # 1.1 10^3/uL (0.0-0.8); MONO % 13.6 % (2.0-8.0); NEUTROPHILS # 5.1 10^3/uL (1.5-8.5); NEUTROPHILS % 64.4 % (36.0-66.0); PLATELET COUNT, AUTOMATED 190 10^3/uL (150-450); RED BLOOD COUNT 4.38 10^6/uL (4.30-6.10); WHITE BLOOD COUNT 7.9 10^3/uL (4.0-10.0)
[2023-04-16 10:25] LABS: INR 2.86
[2023-04-16 10:44] LABS: ALBUMIN 2.9 G/DL (3.2-5.2); ALKALINE PHOSPHATASE 177 U/L (46-116); ALT/SGPT 70 U/L (7.0-40); AST/SGOT 50 U/L (<34); BILIRUBIN,DIRECT 0.4 MG/DL (<0.4); BILIRUBIN,TOTAL 0.8 MG/DL (0.3-1.2); BLOOD UREA NITROGEN 19 MG/DL (9-23); CARBON DIOXIDE LEVEL 29 MMOL/L (20-31); CHLORIDE LEVEL 99 MMOL/L (98-107); CREATININE FOR GFR 0.79 MG/DL (0.70-1.30); GLOMERULAR FILTRATION RATE > 60.0 (>56); GLUCOSE, FASTING 85 MG/DL (60-100); POTASSIUM SERUM 4.5 MMOL/L (3.5-5.1); SODIUM LEVEL 135 MMOL/L (136-145); TOTAL PROTEIN 8.5 G/DL (5.7-8.2)
[2023-04-16 10:45] LABS: FREE T4 0.85 NG/DL (0.89-1.76); THYROID STIMULATING HORMONE 5.733 uIU/ML (0.55-4.78)
[2023-04-16 12:15] VITALS: BP 166/98; TEMP 98.6; O2SAT 99
== END 2023-04-16 12:15 | disposition home or self-care (01) ==
LOC: M ED 09:27 → EDBD 09:27 → M ED 12:15
DX: I48.91 Unspecified atrial fibrillation (principal); Z79.01 Long term (current) use of anticoagulants; Z79.899 Other long term (current) drug therapy

== ENCOUNTER 2023-05-20 13:38 | Emergency (ER) | payer OTHER, SELFPAY ==
[~2023-05-20] VITALS: Ht 175.3 cm; Wt 78.2 kg
[2023-05-20 15:40] VITALS: BP 152/99; TEMP 97.7; O2SAT 97
== END 2023-05-20 15:56 | disposition home or self-care (01) ==
LOC: M ED 13:38 → EDBD 13:38 → M ED 15:56
DX: T34.531A Frostbite with tissue necrosis of right finger(s), initial encounter (principal); X31.XXXA Exposure to excessive natural cold, initial encounter; Y92.9 Unspecified place or not applicable; Y93.89 Activity, other specified; Y99.9 Unspecified external cause status; F17.200 Nicotine dependence, unspecified, uncomplicated; F19.10 Other psychoactive substance abuse, uncomplicated; Z79.01 Long term (current) use of anticoagulants; Z79.899 Other long term (current) drug therapy

== ENCOUNTER 2023-05-31 00:40 | Emergency (ER) | payer OTHER ==
[~2023-05-31] VITALS: Ht 170.2 cm; Wt 76.0 kg
[2023-05-31] MEDS ORDERED: NS 1,000 ML IV ONE (00:50)
[2023-05-31 01:20] LABS: BASO % 0.2 % (0.0-1.0); HEMOGLOBIN 13.2 g/dl (13.5-17.5); LYMPH # 0.6 10^3/uL (1.5-5.0); LYMPH % 10.7 % (24.0-44.0); MEAN CORPUSCULAR HGB CONC 32.2 g/dl (32.0-36.5); MEAN CORPUSCULAR VOLUME 96.2 fl (80.0-96.0); MONO # 0.7 10^3/uL (0.0-0.8); MONO % 12.9 % (2.0-8.0); NEUTROPHILS # 4.1 10^3/uL (1.5-8.5); NEUTROPHILS % 75.8 % (36.0-66.0); PLATELET COUNT, AUTOMATED 175 10^3/uL (150-450); RED BLOOD COUNT 4.26 10^6/uL (4.30-6.10); WHITE BLOOD COUNT 5.4 10^3/uL (4.0-10.0)
[2023-05-31 01:32] LABS: INR 1.42; PROTHROMBIN TIME 16.9 SECONDS (12.5-14.5)
[2023-05-31 01:33] LABS: PARTIAL THROMBOPLASTIN TIME 31.7 SECONDS (24.8-34.2)
[2023-05-31 01:43] LABS: LIPASE 35 U/L (12-53)
[2023-05-31 01:45] LABS: ALKALINE PHOSPHATASE 137 U/L (46-116); ALT/SGPT 82 U/L (7.0-40); AST/SGOT 65 U/L (<34); BILIRUBIN,DIRECT 0.4 MG/DL (<0.4); BILIRUBIN,TOTAL 0.8 MG/DL (0.3-1.2); BLOOD UREA NITROGEN 16 MG/DL (9-23); CALCIUM LEVEL 7.9 MG/DL (8.5-10.1); CARBON DIOXIDE LEVEL 22 MMOL/L (20-31); CHLORIDE LEVEL 107 MMOL/L (98-107); CK-MB VALUE MASS < 1.0 NG/ML (<3.6); CREATININE FOR GFR 0.99 MG/DL (0.70-1.30); GLOMERULAR FILTRATION RATE > 60.0 (>56); GLUCOSE, FASTING 105 MG/DL (60-100); SODIUM LEVEL 138 MMOL/L (136-145); TOTAL PROTEIN 7.2 G/DL (5.7-8.2)
[2023-05-31 01:48] LABS: CPK CREATINE PHOSPHOKINASE 331 U/L (46-171)
[2023-05-31 03:35] LABS: CK-MB VALUE MASS < 1.0 NG/ML (<3.6)
[2023-05-31 03:40] LABS: CPK CREATINE PHOSPHOKINASE 283 U/L (46-171); MB/CK RELATIVE INDEX 0.35 (< OR =4)
[2023-05-31] MEDS ORDERED: ACETAMINOPHEN TAB 650MG DOSE (2X325MG) PO ONE (03:55)
[2023-05-31] MEDS ORDERED: METOPROLOL TART 25 MG TABLET PO ONE (03:55)
[2023-05-31] MEDS: METOPROLOL 5 MG/5 ML VIAL IV SCH ×3 (04:44→05:08)
[2023-05-31 05:08] VITALS: BP 152/84
[2023-05-31 06:00] VITALS: BP 114/80
[2023-05-31] MEDS ORDERED: IBUPROFEN 800 MG TAB PO ONE (06:05)
[2023-05-31 06:17] VITALS: O2SAT 93
[2023-05-31 06:29] VITALS: TEMP 99.9
[2023-05-31] MEDS ORDERED: METO25TA4 PO (06:38)
== END 2023-05-31 07:01 | disposition home or self-care (01) ==
LOC: M ED 00:40 → EDBD 00:40 → M ED 07:01
DX: I48.91 Unspecified atrial fibrillation (principal); J09.X2 Influenza due to identified novel influenza A virus with other respiratory manifestations; B34.8 Other viral infections of unspecified site; Z79.899 Other long term (current) drug therapy

== ENCOUNTER → 2024-07-31 | Outpatient (CLI) | payer OTHER ==
[~2024-07-31] MED LIST changes: +GABA-1172; -GABA-282; -MIRA1POW3 PO; +MIRA33506 PO
[2024-07-31 18:49] LABS: BASO % 0.5 % (0.0-1.0); EOS # 0.2 10^3/uL (0.0-0.5); EOS % 3.1 % (0.0-3.0); HEMATOCRIT 52.8 % (42.0-52.0); HEMOGLOBIN 17.7 g/dl (13.5-17.5); LYMPH # 2.6 10^3/uL (1.5-5.0); MEAN CORPUSCULAR HEMOGLOBIN 31.9 pg (27.0-33.0); MEAN CORPUSCULAR HGB CONC 33.5 g/dl (32.0-36.5); MEAN CORPUSCULAR VOLUME 95.3 fl (80.0-96.0); MONO # 0.8 10^3/uL (0.0-0.8); MONO % 9.9 % (2.0-8.0); NEUTROPHILS # 4.2 10^3/uL (1.5-8.5); NEUTROPHILS % 53.2 % (36.0-66.0); PLATELET COUNT, AUTOMATED 202 10^3/uL (150-450); RED BLOOD COUNT 5.54 10^6/uL (4.30-6.10); WHITE BLOOD COUNT 7.8 10^3/uL (4.0-10.0)
[2024-07-31 19:12] LABS: ALKALINE PHOSPHATASE 146 U/L (40-129); ALT/SGPT 124 U/L (7.0-40); AST/SGOT 90 U/L (<34); BILIRUBIN,TOTAL 0.8 MG/DL (0.3-1.2); BLOOD UREA NITROGEN 22 MG/DL (9-23); CALCIUM LEVEL 9.3 MG/DL (8.3-10.6); CARBON DIOXIDE LEVEL 24 MMOL/L (20-31); CHLORIDE LEVEL 107 MMOL/L (98-107); CREATININE FOR GFR 1.26 MG/DL (0.70-1.30); GLOMERULAR FILTRATION RATE > 60.0 (>49); GLUCOSE, FASTING 86 MG/DL (74-106); POTASSIUM SERUM 4.3 MMOL/L (3.5-5.1); SODIUM LEVEL 142 MMOL/L (136-145); TOTAL PROTEIN 8.2 G/DL (5.7-8.2)
[2024-07-31 19:32] LABS: HEPATITIS B SURFACE ANTIGEN NEGATIVE (NEGATIVE)
[2024-07-31 19:54] LABS: HEPATITIS B CORE ANTIBODY IGM NEGATIVE (NEGATIVE)
[2024-07-31 21:47] LABS: APPEARANCE, URINE MANUAL CLEAR (CLEAR); COLOR, URINE MANUAL YELLOW (YELLOW)
[2024-07-31 21:48] LABS: BILIRUBIN, URINE MANUAL NEGATIVE (NEGATIVE); BLOOD URINE MANUAL NEGATIVE (NEGATIVE); GLUCOSE, URINE (UA) MANUAL 4+(1000 MG/DL) mg/dL (NEGATIVE); KETONE, URINE MANUAL NEGATIVE (NEGATIVE); LEUKOCYTE ESTERASE, URINE MAN NEGATIVE (NEGATIVE); NITRITE, URINE MANUAL NEGATIVE (NEGATIVE); PROTEIN, URINE MANUAL NEGATIVE (NEGATIVE); UROBILINOGEN, URINE MANUAL NORMAL (NORMAL)
[2024-08-01 19:18] LABS: HEPATITIS C VIRUS ABY INDEX > 11.00 INDEX (<0.8)
[2024-08-03 10:43] LABS: HCV RNA QUANTITATION <15 NOT DETECTED IU/mL (NOT DETECTED); HCV RNA log10 <1.18 NOT DETECTED Log IU/mL (NOT DETECTED)
== END ==
LOC: M WUC 12:51
DX: Z00.8 Encounter for other general examination (principal)

== ENCOUNTER 2024-10-10 18:07 | Emergency (ER) | payer OTHER ==
[~2024-10-10] VITALS: Ht 175.3 cm; Wt 99.9 kg
[~2024-10-10 18:07] MED LIST changes: -AMBI10TA PO; +LIDO1ADH93 TD; -LIDO5DIS41 TD; +ZOLP-533 PO
[2024-10-10] MEDS ORDERED: NOXI1TAB PO (18:25)
[2024-10-10] MEDS ORDERED: FLUT15.820 NARES (18:25)
[2024-10-10] MEDS ORDERED: FAMO20TA PO (18:25)
[2024-10-10] MEDS ORDERED: GNPTAB35 PO (18:25)
[2024-10-10] MEDS ORDERED: CHLO25TA PO (18:25)
[2024-10-10] MEDS ORDERED: TIZA2CAP PO (18:25)
[2024-10-10] MEDS ORDERED: FARX1TAB3 PO (18:25)
[2024-10-10] MEDS: NS (Normal Saline) 0.9% 1,000 ML IV ONE (21:19)
[2024-10-10] MEDS: ONDANSETRON 4MG 2ML VIAL IV ONE (21:19)
[2024-10-10 21:24] LABS: BASO % 0.4 % (0.0-1.0); EOS # 0.1 10^3/uL (0.0-0.5); EOS % 1.6 % (0.0-3.0); HEMATOCRIT 55.4 % (42.0-52.0); LYMPH # 2.1 10^3/uL (1.5-5.0); LYMPH % 27.8 % (24.0-44.0); MEAN CORPUSCULAR HEMOGLOBIN 32.4 pg (27.0-33.0); MEAN CORPUSCULAR HGB CONC 34.3 g/dl (32.0-36.5); MEAN CORPUSCULAR VOLUME 94.5 fl (80.0-96.0); MONO # 0.9 10^3/uL (0.0-0.8); MONO % 11.8 % (2.0-8.0); NEUTROPHILS # 4.3 10^3/uL (1.5-8.5); NEUTROPHILS % 58.1 % (36.0-66.0); PLATELET COUNT, AUTOMATED 168 10^3/uL (150-450); RED BLOOD COUNT 5.86 10^6/uL (4.30-6.10); WHITE BLOOD COUNT 7.5 10^3/uL (4.0-10.0)
[2024-10-10 22:03] LABS: ALBUMIN 4.1 G/DL (3.2-5.2); BILIRUBIN,DIRECT 0.3 MG/DL (<0.4); BILIRUBIN,TOTAL 0.9 MG/DL (0.3-1.2); CALCIUM LEVEL 8.6 MG/DL (8.3-10.6); CREATININE FOR GFR 1.28 MG/DL (0.70-1.30); GLOMERULAR FILTRATION RATE 64.1 (>49); MAGNESIUM LEVEL 2.7 MG/DL (1.8-2.4); POTASSIUM SERUM 5.6 MMOL/L (3.5-5.1); TOTAL PROTEIN 8.5 G/DL (5.7-8.2)
[2024-10-10] MEDS: POTASSIUM CHLORIDE 10MEQ SR TABLET PO ONE (23:57)
[2024-10-11] MEDS ORDERED: AZIT500T5 PO (00:22)
[2024-10-11] MEDS ORDERED: POTA-151 PO (00:22)
[2024-10-11] MEDS: AZITHROMYCIN 250MG TABLET PO ONE (00:26)
[2024-10-11 00:30] VITALS: BP 133/75; TEMP 98; O2SAT 99
== END 2024-10-11 00:43 | disposition home or self-care (01) ==
LOC: M ED 18:07
DX: R19.7 Diarrhea, unspecified (principal); E87.6 Hypokalemia; A04.5 Campylobacter enteritis; A08.11 Acute gastroenteropathy due to Norwalk agent; K21.9 Gastro-esophageal reflux disease without esophagitis; I10 Essential (primary) hypertension; I48.91 Unspecified atrial fibrillation; Z79.2 Long term (current) use of antibiotics; Z79.01 Long term (current) use of anticoagulants; Z79.899 Other long term (current) drug therapy
CPT/HCPCS: 80048; 80076; 83735; 84132; 85025; 87486; 87507; 87581; 87633; 87798; 96361; 96374; 99284; J2405

== ENCOUNTER 2024-12-03 10:21 | Day surgery (SDC) | payer OTHER ==
[~2024-12-03] VITALS: Ht 175.3 cm; Wt 102.0 kg
[~2024-12-03 10:21] MED LIST changes: +AZIT500T5 PO; +FAMO20TA PO; +FARX1TAB3 PO; +FLUT15.820 NARES; +GNPTAB35 PO; +LISI40TA10 PO; -LISI40TA4 PO; +MAGN200T PO; +METO1TAB7 PO; +NOXI1TAB PO; +POTA-151 PO; +THERTAB52 PO; +TIZA2CAP PO; +VITA100093 PO
[2024-12-03] MEDS ORDERED: LR 1,000 ML IV SCH (10:55)
[2024-12-03] MEDS ORDERED: MIDAZOLAM INJ 2 MG/2 ML VIAL As Ordered ONE (12:25)
[2024-12-03] MEDS ORDERED: dexAMETHasone 4 MG/ML 1 ML VIAL As Ordered ONE (12:26)
[2024-12-03] MEDS ORDERED: ROCURONIUM BROMIDE 50MG/5ML VIAL As Ordered ONE (12:26)
[2024-12-03] MEDS ORDERED: LIDOCAINE 2% 100 MG/5 ML SDV (FOR ANES.) As Ordered ONE (12:29)
[2024-12-03] MEDS ORDERED: OXYMETAZOLINE 0.05% NASAL SPRAY As Ordered ONE (13:16)
[2024-12-03] MEDS: AMPICILLIN SOD/SULBACTAM SOD 3 GM in D5W MINI-BAG 100 ML IV ONE (13:32)
[2024-12-03] MEDS: dexAMETHasone 4 MG/ML 1 ML VIAL IV ONE (13:32)
[2024-12-03] MEDS ORDERED: ACETAMINOPHEN 1000MG/100ML IV BAG As Ordered ONE (13:50)
[2024-12-03] MEDS ORDERED: ONDANSETRON 4MG 2ML VIAL As Ordered ONE (14:33)
[2024-12-03] MEDS: CHLORHEXIDINE GLUCONATE 0.12% 15 ML UDC As Ordered ONE (14:39)
[2024-12-03] MEDS ORDERED: ONDANSETRON 4MG 2ML VIAL IV PRN (14:55)
[2024-12-03] MEDS: MORPHINE 2 MG/ML 1 ML VIAL IV PRN (15:02)
[2024-12-03 16:11] VITALS: BP 155/88; TEMP 97.6; O2SAT 95
== END 2024-12-03 16:36 | disposition home or self-care (01) ==
LOC: M SDC 10:21
PROVIDERS: ATTEND Dentist
DX: K02.9 Dental caries, unspecified (principal); K08.89 Other specified disorders of teeth and supporting structures; F40.232 Fear of other medical care; I48.91 Unspecified atrial fibrillation; G47.9 Sleep disorder, unspecified; R06.83 Snoring; F17.220 Nicotine dependence, chewing tobacco, uncomplicated
CPT/HCPCS: 88300; D7140; D7210; D7310; J0131; J0295; J0666; J1100; J2250; J2405; J3010